=== PATIENT | female | born 1980 | race Caucasian/White ===

== ENCOUNTER 2016-11-20 12:24 | Emergency (ER) | payer OTHER ==
[2016-11-20] MEDS ORDERED: NS 0.9% 1000 ML* 1,000 ML IV SCH (12:45)
[2016-11-20 12:55] LABS: Hematocrit 44 % (35-47); Mean Corpuscular HGB Conc 34 g/dl (31-36); Mean Corpuscular Hemoglobin 31 pg (27-31); Mean Corpuscular Volume 92 fL (80-97); Mean Platelet Volume 7 um3 (7.4-10.4); Red Blood Count 4.81 10^6/ul (4.0-5.4); Red Cell Distribution Width 12 % (10.5-15); White Blood Count 5.9 10^3/ul (3.5-10.8)
[2016-11-20 13:12] LABS: ALT 14 U/L (7-52); AST 16 U/L (13-39); Albumin 4.3 g/dL (3.2-5.2); Alkaline Phosphatase 51 U/L (34-104); Anion Gap 6 mmol/L (2-11); BUN/Creatinine Ratio 14.9 (8-20); Blood Urea Nitrogen 10 mg/dL (6-24); C Reactive Protein < 1.00 mg/L (< 5.00); CO2 Carbon Dioxide 25 mmol/L (22-32); Calcium 9.2 mg/dL (8.6-10.3); Chloride 105 mmol/L (101-111); Creatine Kinase 60 U/L (10-223); EGFR African American 126.7 (>60); EGFR Non-African American 98.5 (>60); Globulin 2.8 g/dL (2-4); Glucose 83 mg/dL (70-100); Lipase 24 U/L (11.0-82.0); Magnesium 2.1 mg/dL (1.9-2.7); Potassium 3.8 mmol/L (3.5-5.0); Sodium 136 mmol/L (133-145); Total Protein 7.1 g/dL (6.4-8.9)
[2016-11-20 13:42] LABS: TSH (Thyroid Stimulating Horm) 1.28 mcIU/mL (0.34-5.60)
[2016-11-20] MEDS ORDERED: Pantoprazole IV* 40 MG IV ONE (14:04)
[2016-11-20] MEDS ORDERED: Sucralfate TAB* 1 GM PO ONE (14:04)
[2016-11-20] MEDS ORDERED: Lidocaine 2% VISCOUS* 15 ML UDC PO ONE (15:25)
[2016-11-20] MEDS ORDERED: Al Hydrox/Mg Hydrox/Simet LIQ* 30 ML UDC PO ONE (15:25)
[2016-11-20] MEDS ORDERED: Hydrocortisone INJ* 250 MG VIAL IV ONE (15:25)
[2016-11-20] MEDS ORDERED: Ibuprofen TAB* 600 MG PO ONE (15:34)
[2016-11-20 16:16] VITALS: BP 112/67
--- NOTE | 2016-11-21 19:47 | ED ---
Génesis Denson Alok, scribed for Piotr Coronel MD on 11/20/16 at 1433 . Allergic Reaction/Systemic - HPI Summary HPI Summary: 36F presents to the ED with tongue swelling and pain. Pt states that this morning after waking her tongue felt swollen and noticed teeth garcia on lips. Pt states later her tongue began to feel painful and notes sore throat and difficulty speaking. The pt states that last night she experienced epigastric pain 7/10 in severity after eating a cookie and still feels epigastric pain at 3 /10 in severity. Pt notes dysphagia. Pt states she has never experienced her tongue pain/swelling before, but since June 2016 as been experiencing GI issues improved since cutting out dairy, meat, and sugar from her diet. PMHx includes MS and secondary adrenal deficiency for which she has been taking 17.5 mg Cortef QD. She has taken her Cortef today and yesterday. Pt states NKDA. - History of Current Complaint Chief Complaint: EDAllergicReaction Time Seen by Provider: 11/20/16 13:58 Hx Obtained From: Patient Onset/Duration: Gradual Onset, Started hours ago, Still Present Timing: Constant Severity Initially: Moderate Severity Currently: Moderate Pain Intensity: 3 - epigastric pain Pain Scale Used: 0-10 Numeric Location: Discrete @ - epigastric Character: Swelling - tongue, Pain - tongue Aggravating Factor(s): Other - Sugar - Epigastric pain Associated Signs And Symptoms: Positive: Abdominal Pain, Throat Tightening, Other: - dysphagia, tongue pain/swelling - Allergies/Home Medications Allergies/Adverse Reactions: Allergies Allergy/AdvReac Type Severity Reaction Status Date / Time No Known Allergies Allergy Verified 10/08/16 13:18 PMH/Surg Hx/FS Hx/Imm Hx Endocrine/Hematology History: Denies: Hx Diabetes Cardiovascular History: Denies: Hx Congestive Heart Failure, Hx Hypertension, Hx Pacemaker/ICD History: Denies: Hx Dialysis, Hx Renal Disease Sensory History: Denies: Hx Hearing Aid Psychiatric History: Denies: Hx Panic Disorder - Surgical History Surgery Procedure, Year, and Place: TUBAL LIGATION - Immunization History Date of Tetanus Vaccine: Unk Date of Influenza Vaccine: Fall 2012 Infectious Disease History: No Infectious Disease History: Denies: Traveled Outside the [place] in Last 30 Days - Family History Known Family History: Negative: Cardiac Disease, Hypertension, Diabetes - Social History Occupation: Retired Alcohol Use: None Substance Use Type: Reports: None Smoking Status (MU): Former Smoker Review of Systems Negative: Fever Positive: Sore Throat, Other - Tongue pain/swelling, dysphagia Positive: Abdominal Pain All Other Systems Reviewed And Are Negative: Yes Physical Exam Triage Information Reviewed: Yes Vital Signs On Initial Exam: Initial Vitals Temp Pulse Resp BP Pulse Ox 98.3 F 79 13 135/73 100 11/20/16 12:26 11/20/16 12:26 11/20/16 12:26 11/20/16 12:26 11/20/16 12:26 Vital Signs Reviewed: Yes Appearance: Positive: Well-Appearing, No Pain Distress Skin: Positive: Warm, Skin Color Reflects Adequate Perfusion, Dry Head/Face: Positive: Normal Head/Face Inspection Eyes: Positive: Normal ENT: Positive: Normal ENT inspection Neck: Positive: Supple, Nontender, No Lymphadenopathy Respiratory/Lung Sounds: Positive: Clear to Auscultation, Breath Sounds Present Cardiovascular: Positive: RRR Abdomen Description: Positive: Soft, Other: - Epigastric Pain Bowel Sounds: Positive: Present Musculoskeletal: Positive: Normal Neurological: Positive: Normal Psychiatric: Positive: Normal, Affect/Mood Appropriate - [place] Coma Scale Coma Scale Total: 15 Diagnostics - Vital Signs Vital Signs Temp Pulse Resp BP Pulse Ox 11/20/16 13:46 77 109/60 96 11/20/16 13:30 77 104/66 95 11/20/16 13:00 77 101/66 96 11/20/16 12:43 79 100 11/20/16 12:41 111/85 11/20/16 12:30 98.9 F 81 16 104/66 96 11/20/16 12:26 98.3 F 79 13 135/73 100 - Laboratory Lab Results: Lab Results 11/20/16 11/20/16 11/20/16 Range/Units 12:45 12:45 12:45 WBC 5.9 (3.5-10.8) 10^3/ul RBC 4.81 (4.0-5.4) 10^6/ul Hgb 15.0 (12.0-16.0) g/dl Hct 44 (35-47) % MCV 92 (80-97) fL MCH 31 (27-31) pg MCHC 34 (31-36) g/dl RDW 12 (10.5-15) % Plt Count 289 (150-450) 10^3/ul MPV 7 L (7.4-10.4) um3 Neut % (Auto) 49.5 (38-83) % Lymph % (Auto) 34.6 (25-47) % Mills % (Auto) 9.0 (1-9) % Eos % (Auto) 6.5 H (0-6) % Baso % (Auto) 0.4 (0-2) % Absolute Neuts (auto) 2.9 (1.5-7.7) 10^3/ul Absolute Lymphs (auto) 2.0 (1.0-4.8) 10^3/ul Absolute Monos (auto) 0.5 (0-0.8) 10^3/ul Absolute Eos (auto) 0.4 (0-0.6) 10^3/ul Absolute Basos (auto) 0 (0-0.2) 10^3/ul Absolute Nucleated RBC 0 10^3/ul Nucleated RBC % 0 INR (Anticoag Therapy) 0.92 (0.89-1.11) APTT 30.2 (26.0-36.3) seconds Sodium 136 (133-145) mmol/L Potassium 3.8 (3.5-5.0) mmol/L Chloride 105 (101-111) mmol/L Carbon Dioxide 25 (22-32) mmol/L Anion Gap 6 (2-11) mmol/L BUN 10 (6-24) mg/dL Creatinine 0.67 (0.51-0.95) mg/dL Est GFR ( Amer) 126.7 (>60) Est GFR (Non-Af Amer) 98.5 (>60) BUN/Creatinine Ratio 14.9 (8-20) Glucose 83 (70-100) mg/dL Lactic Acid (0.5-2.0) mmol/L Calcium 9.2 (8.6-10.3) mg/dL Magnesium 2.1 (1.9-2.7) mg/dL Total Bilirubin 0.40 (0.2-1.0) mg/dL AST 16 (13-39) U/L ALT 14 (7-52) U/L Alkaline Phosphatase 51 (34-104) U/L Total Creatine Kinase 60 (10-223) U/L CK-MB (CK-2) 1.6 (0.6-6.3) ng/mL Troponin I 0.00 (<0.04) ng/mL C-Reactive Protein < 1.00 (< 5.00) mg/L B-Natriuretic Peptide ( - 100) pg/mL Total Protein 7.1 (6.4-8.9) g/dL Albumin 4.3 (3.2-5.2) g/dL Globulin 2.8 (2-4) g/dL Albumin/Globulin Ratio 1.5 (1-3) Lipase 24 (11.0-82.0) U/L TSH 1.28 (0.34-5.60) mcIU/mL Beta HCG, Quant < 0.60 mIU/mL 11/20/16 11/20/16 Range/Units 12:45 12:45 WBC (3.5-10.8) 10^3/ul RBC (4.0-5.4) 10^6/ul Hgb (12.0-16.0) g/dl Hct (35-47) % MCV (80-97) fL MCH (27-31) pg MCHC (31-36) g/dl RDW (10.5-15) % Plt Count (150-450) 10^3/ul MPV (7.4-10.4) um3 Neut % (Auto) (38-83) % Lymph % (Auto) (25-47) % Mills % (Auto) (1-9) % Eos % (Auto) (0-6) % Baso % (Auto) (0-2) % Absolute Neuts (auto) (1.5-7.7) 10^3/ul Absolute Lymphs (auto) (1.0-4.8) 10^3/ul Absolute Monos (auto) (0-0.8) 10^3/ul Absolute Eos (auto) (0-0.6) 10^3/ul Absolute Basos (auto) (0-0.2) 10^3/ul Absolute Nucleated RBC 10^3/ul Nucleated RBC % INR (Anticoag Therapy) (0.89-1.11) APTT (26.0-36.3) seconds Sodium (133-145) mmol/L Potassium (3.5-5.0) mmol/L Chloride (101-111) mmol/L Carbon Dioxide (22-32) mmol/L Anion Gap (2-11) mmol/L BUN (6-24) mg/dL Creatinine (0.51-0.95) mg/dL Est GFR ( Amer) (>60) Est GFR (Non-Af Amer) (>60) BUN/Creatinine Ratio (8-20) Glucose (70-100) mg/dL Lactic Acid 0.9 (0.5-2.0) mmol/L Calcium (8.6-10.3) mg/dL Magnesium (1.9-2.7) mg/dL Total Bilirubin (0.2-1.0) mg/dL AST (13-39) U/L ALT (7-52) U/L Alkaline Phosphatase (34-104) U/L Total Creatine Kinase (10-223) U/L CK-MB (CK-2) (0.6-6.3) ng/mL Troponin I (<0.04) ng/mL C-Reactive Protein (< 5.00) mg/L B-Natriuretic Peptide 13 ( - 100) pg/mL Total Protein (6.4-8.9) g/dL Albumin (3.2-5.2) g/dL Globulin (2-4) g/dL Albumin/Globulin Ratio (1-3) Lipase (11.0-82.0) U/L TSH (0.34-5.60) mcIU/mL Beta HCG, Quant mIU/mL Result Diagrams: 11/20/16 12:45 11/20/16 12:45 Lab Statement: Any lab studies that have been ordered have been reviewed, and results considered in the medical decision making process. Allergic Reaction Course/Dx - Course Course Of Treatment: Ms. Denson preented C/O pain in her tongue this AM and epigastric pain during the night. She improved slowly with GI meds here in the ED and I think this was probably reflux. - Diagnoses Provider Diagnoses: GERD (gastroesophageal reflux disease) Discharge - Discharge Plan Condition: Stable Disposition: HOME Patient Education Materials: Gastroesophageal Reflux Disease (ED) Referrals: Irwin Mcfadden III, SHRINK PIT OPERATOR [Primary Care Provider] - The documentation as recorded by the Génesis lyn Alok accurately reflects the service I personally performed and the decisions made by me, Piotr Coronel MD.
== END 2016-11-20 16:56 | disposition home or self-care (01) ==
LOC: ED 12:24
DX: K21.9 Gastro-esophageal reflux disease without esophagitis (principal); R10.9 Unspecified abdominal pain; R13.10 Dysphagia, unspecified; J02.9 Acute pharyngitis, unspecified; Z87.891 Personal history of nicotine dependence
CPT/HCPCS: 36415; 80053; 82550; 82553; 83605; 83690; 83735; 83880; 84443; 84484; 84702; 85025; 85610; 85730; 86140; 96374; 96375; 99284; A9270-GY; J1720

== ENCOUNTER 2017-07-02 21:40 | Emergency (ER) | payer OTHER ==
[2017-07-02] MEDS ORDERED: Acyclovir* 200 MG CAP PO ONE (21:51)
[2017-07-02 22:02] VITALS: BP 113/70
[2017-07-02] MEDS ORDERED: Acyclovir* 200 MG CAP ONE (22:08)
--- NOTE | 2017-07-02 22:15 | UC ---
Matilda Denson Alfonso, scribed for Jayant Purdy MD on 07/02/17 at 2153 . General HPI - HPI Summary HPI Summary: This patient is a 37 year old F presenting to [facility] accompanied by male with a chief complaint of a painful left hip rash noted earlier today. She reports this rash was similar to a previous MRSA. The patient rates the pain 3/10 in severity. Symptoms aggravated and alleviated by nothing. Patient reports low back pain. - History of Current Complaint Stated Complaint: RASH Time Seen by Provider: 07/02/17 21:46 Hx Obtained From: Patient Onset/Duration: Still Present, Other - noted earlier today Timing: Constant Current Severity: Mild - 3/10 Pain Intensity: 3 - /10 Pain Location at: left hip Pain Radiates to: low back Aggravating: nothing Alleviating: nothing - Allergy/Home Medications Allergies/Adverse Reactions: Allergies Allergy/AdvReac Type Severity Reaction Status Date / Time No Known Allergies Allergy Verified 07/02/17 21:52 Home Medications: Home Medications Carbamazepine [Carbamazepine ER] 400 mg PO BEDTIME 07/02/17 [History Confirmed 07/02/17] PMH/Surg Hx/FS Hx/Imm Hx Previously Healthy: No Endocrine History: Other - MS. Adrenal insufficency. Other Endocrine History: MS. Adrenal insufficency. - Surgical History Surgical History: Yes Surgery Procedure, Year, and Place: TUBAL LIGATION - Family History Known Family History: Negative: Cardiac Disease, Hypertension, Diabetes - Social History Alcohol Use: None Substance Use Type: None Smoking Status (MU): Former Smoker Review of Systems Skin: Rash Musculoskeletal: Other: - low back pain All Other Systems Reviewed And Are Negative: Yes Physical Exam Triage Information Reviewed: Yes Vital Signs Reviewed: Yes - Additional Comments VITAL SIGNS: Reviewed. GENERAL: Patient is a well-developed and nourished female who is lying comfortable in the stretcher. Patient is not in any acute respiratory distress. HEAD AND FACE: Normocephalic EYES: PERRLA, EOMI x 2. EARS: Hearing grossly intact. MOUTH: Oropharynx within normal limits. NECK: Supple, trachea is midline, no adenopathy, no JVD, no carotid bruit. CHEST: Symmetric, no tenderness at palpation LUNGS: Clear to auscultation bilaterally. No wheezing or crackles. CVS: Regular rate and rhythm, S1 and S2 present, no murmurs or gallops appreciated. ABDOMEN: Soft, non-tender. Bowel sounds are normal. No abdominal abnormal pulsations. EXTREMITIES: Full ROM in all major joints, no edema, no cyanosis or clubbing. NEURO: Alert and oriented x 3. No acute neurological deficits. Speech is normal and follows commands. SKIN: Dry and warm. Vesicular rash with surrounding erythema which is tender to the touch at the left hip. Course/Dx - Course Course Of Treatment: This patient is a 37 year old F presenting to [facility] accompanied by male with a chief complaint of a painful left hip rash noted earlier today. She reports this rash was similar to a previous MRSA. The patient rates the pain 3/10 in severity. Symptoms aggravated and alleviated by nothing. Patient reports low back pain. Patient will be discharged with prescription for Valtrex and follow up from PCP. The patient is agreeable with this plan. The patient is hemodynamically stable, alert and oriented x3. - Differential Dx - Multi-Symptom Differential Diagnoses: Other - Contact dermatitis, tinea, cellulitis Provider Diagnoses: Shingles Discharge - Discharge Plan Condition: Stable Disposition: HOME Prescriptions: ValACYclovir (*) [Valtrex 1 GM(*)] 1 gm PO TID #21 tab Patient Education Materials: Shingles (ED) Referrals: Irwin Mcfadden III, ELECTRONICS ENGINEERING PROFESSOR [Primary Care Provider] - 3 Days Additional Instructions: RETURN TO THE EMERGENCY DEPARTMENT OR CONVENIENT CARE FOR CHANGING OR WORSENING SYMPTOMS. The documentation as recorded by the Matilda lyn Alfonso accurately reflects the service I personally performed and the decisions made by , Jayant Purdy MD.
== END 2017-07-02 22:18 | disposition home or self-care (01) ==
LOC: UCEAST 21:40
DX: B02.9 Zoster without complications (principal); M54.5 Low back pain; Z87.891 Personal history of nicotine dependence; Z86.14 Personal history of Methicillin resistant Staphylococcus aureus infection
CPT/HCPCS: 99212; A9270-GY; G0463

== ENCOUNTER 2017-07-07 18:58 | Emergency (ER) | payer OTHER ==
--- NOTE | 2017-07-07 19:03 | UC ---
Skin Complaint HPI - HPI Summary HPI Summary: 37 year old female presents with complains of continued left abdominal shingle pain. - History of Current Complaint Chief Complaint: UCSkin Time Seen by Provider: 07/07/17 19:02 Stated Complaint: SKIN PAIN Hx Obtained From: Patient Hx Last Menstrual Period: 06/16/17 Onset/Duration: Sudden Onset, Lasting Days Timing: Constant Onset Severity: Severe Current Severity: Severe - Allergy/Home Medications Allergies/Adverse Reactions: Allergies Allergy/AdvReac Type Severity Reaction Status Date / Time No Known Allergies Allergy Verified 07/02/17 21:52 Home Medications: Home Medications Gabapentin CAP(*) [Neurontin 100 mg CAP(*)] 400 mg PO DAILY 07/07/17 [History Confirmed 07/07/17] Review of Systems Constitutional: Negative Skin: Rash Eyes: Negative ENT: Negative Respiratory: Negative Cardiovascular: Negative Gastrointestinal: Negative Genitourinary: Negative Motor: Negative Neurovascular: Negative Musculoskeletal: Negative Neurological: Negative Psychological: Negative All Other Systems Reviewed And Are Negative: Yes PMH/Surg Hx/FS Hx/Imm Hx Previously Healthy: Yes - Surgical History Surgical History: Yes Surgery Procedure, Year, and Place: TUBAL LIGATION - Family History Known Family History: Negative: Cardiac Disease, Hypertension, Diabetes - Social History Alcohol Use: None Substance Use Type: None Smoking Status (MU): Former Smoker Physical Exam Triage Information Reviewed: Yes Vital Signs Reviewed: Yes Eye Exam: Normal ENT Exam: Normal Dental Exam: Normal Neck exam: Normal Neck: Positive: 1 Respiratory Exam: Normal Cardiovascular Exam: Normal Abdominal Exam: Normal Musculoskeletal Exam: Normal Neurological Exam: Normal Psychological Exam: Normal Skin: Positive: rashes Course/Dx - Diagnoses Provider Diagnoses: shingles Discharge - Discharge Plan Condition: Stable Disposition: HOME Prescriptions: Acetaminop/Codeine 30 MG TAB* [Tylenol/Codeine 30 MG TAB*] 1 tab PO Q8H PRN #9 tab MDD 3 PRN Reason: Pain Capsaicin 0.025% CREAM* [Zostrix 0.025% CREAM*] 1 applic TOPICAL BID #1 tube Patient Education Materials: Shingles (ED) Referrals: Irwin Mcfadden III, NP [Primary Care Provider] -
[2017-07-07 19:07] VITALS: BP 116/75
[2017-07-07] MEDS ORDERED: Acetaminop/Codeine 30 MG TAB* 1 TAB (300 MG/30 MG) PO ONE (19:16)
== END 2017-07-07 19:33 | disposition home or self-care (01) ==
LOC: UCEAST 18:58
DX: B02.9 Zoster without complications (principal); Z87.891 Personal history of nicotine dependence
CPT/HCPCS: 99212; A9270-GY; G0463

== ENCOUNTER 2017-07-08 05:31 | Emergency (ER) | payer OTHER ==
[2017-07-08 05:39] VITALS: BP 113/68
[2017-07-08] MEDS ORDERED: oxyCODONE/Acetamin 5/325 MG* TAB PO ONE (05:51)
[2017-07-08] MEDS ORDERED: Ketorolac INJ* 60 MG/2 ML VIAL IM ONE (05:51)
--- NOTE | 2017-07-08 06:31 | ED ---
Rodrick Denson Tecjoon, scribed for Caroline Mills MD on 07/08/17 at 0556 . Abdominal Pain/Female - HPI Summary HPI Summary: This patient is a 37 year old female presenting to [facility] accompanied by male reimbursement rep with a chief complaint of left sided ribcage pain since 0300 this morning. The pain is rated 8/10 in severity. Symptoms aggravated by palpation. Symptoms alleviated by nothing. Patient visited last evening and was prescribed Tylenol #3, but states that the pain only worsened further. Patient states that she was dx with shingles on 07/03/17. Pt also reported hx of MS, wondering if in flare d/t left sided "numbness". Patient additionally reports a rash on her left lower abdomen, due to shingles. - History of Current Complaint Chief Complaint: EDRashSkinAbscess Stated Complaint: LT SIDE PAIN/RASH Time Seen by Provider: 07/08/17 05:42 Hx Obtained From: Patient Hx Last Menstrual Period: 06/16/17 Onset/Duration: Gradual Onset, Lasting Hours Timing: Constant Severity Currently: Severe Pain Intensity: 8 Pain Scale Used: 0-10 Numeric Location: Other - left ribcage Aggravating Factor(s): Other: - palpation Alleviating Factor(s): Nothing Associated Signs and Symptoms: Positive: Other: - rash on left lower abdomen due to shingles. Allergies/Adverse Reactions: Allergies Allergy/AdvReac Type Severity Reaction Status Date / Time No Known Allergies Allergy Verified 07/08/17 05:39 PMH/Surg Hx/FS Hx/Imm Hx Previously Healthy: No Endocrine/Hematology History: Denies: Hx Diabetes Cardiovascular History: Denies: Hx Congestive Heart Failure, Hx Hypertension, Hx Pacemaker/ICD History: Denies: Hx Dialysis, Hx Renal Disease Musculoskeletal History: Reports: Other Musculoskeletal History - MS Sensory History: Denies: Hx Hearing Aid Neurological History: Reports: Other Neuro Impairments/Disorders - Multiple Sclerosis Psychiatric History: Denies: Hx Panic Disorder - Surgical History Surgery Procedure, Year, and Place: TUBAL LIGATION - Immunization History Date of Tetanus Vaccine: Unk Date of Influenza Vaccine: Fall 2012 Infectious Disease History: Yes Infectious Disease History: Reports: Hx of Known/Suspected MRSA, Hx Shingles Denies: Traveled Outside the [place] in Last 30 Days - Family History Known Family History: Negative: Cardiac Disease, Hypertension, Diabetes - Social History Alcohol Use: None Hx Substance Use: No Substance Use Type: Reports: None Hx Tobacco Use: No Smoking Status (MU): Former Smoker Review of Systems Negative: Fever Positive: Abdominal Pain - left lower abdomen Positive: Rash - shingles rash on left lower abdomen All Other Systems Reviewed And Are Negative: Yes Physical Exam - Summary Physical Exam Summary: VITAL SIGNS: Reviewed. GENERAL: Patient is a well-developed and nourished female who is lying comfortable in the stretcher. Patient is not in any acute respiratory distress. HEAD AND FACE: No signs of trauma. No ecchymosis, hematomas or skull depressions. No sinus tenderness. EYES: PERRLA, EOMI x 2, No injected conjunctiva, no nystagmus. EARS: Hearing grossly intact. Ear canals and tympanic membranes are within normal limits. MOUTH: Oropharynx within normal limits. NECK: Supple, trachea is midline, no adenopathy, no JVD, no carotid bruit, no c- spine tenderness, neck with full ROM. CHEST: Symmetric, no tenderness at palpation LUNGS: Clear to auscultation bilaterally. No wheezing or crackles. CVS: Regular rate and rhythm, S1 and S2 present, no murmurs or gallops appreciated. ABDOMEN: Soft, non-tender. No signs of distention. No rebound no guarding, and no masses palpated. Bowel sounds are normal. EXTREMITIES: FROM in all major joints, no edema, no cyanosis or clubbing. NEURO: Alert and oriented x 3. No acute neurological deficits. Speech is normal and follows commands. SKIN: Dry and warm. Localized vesicular rash over left lower abdomen Triage Information Reviewed: Yes Vital Signs On Initial Exam: Initial Vitals Temp Pulse Resp BP Pulse Ox 97.9 F 96 16 113/68 99 07/08/17 05:31 07/08/17 05:31 07/08/17 05:31 07/08/17 05:31 07/08/17 05:31 Vital Signs Reviewed: Yes Diagnostics - Vital Signs Vital Signs Temp Pulse Resp BP Pulse Ox 07/08/17 05:31 97.9 F 96 16 113/68 99 - Laboratory Lab Statement: Any lab studies that have been ordered have been reviewed, and results considered in the medical decision making process. Abdominal Pain Fem Course/Dx - Course Course Of Treatment: This patient is a 37 year old female presenting to [facility] accompanied by male reimbursement rep with a chief complaint of left sided ribcage pain since 0300 this morning. The pain is rated 8/10 in severity. Patient additionally reports a rash on her left lower abdomen, due to shingles. In the ED course the patient was given Oxycodone, Toradol. Patient will be discharged with Shingles and follow up with PCP in 3 days. The patient is agreeable with this plan. - Diagnoses Provider Diagnoses: Shingles Discharge - Discharge Plan Condition: Fair Disposition: HOME Prescriptions: oxyCODONE/Acetamin 5/325 MG* [Percocet 5/325 TAB*] 1 tab PO Q6H PRN #14 tab MDD 4 PRN Reason: Pain - Moderate To Severe Patient Education Materials: Attila (ED) Referrals: Irwin Mcfadden III, FONDANT PUFF MAKER [Primary Care Provider] - 3 Days Additional Instructions: RETURN TO EMERGENCY DEPARTMENT FOR ANY NEW OR WORSENING SYMPTOMS The documentation as recorded by the Rodrick lyn Tecjoon accurately reflects the service I personally performed and the decisions made by , Caroline Mills MD.
== END 2017-07-08 06:33 | disposition home or self-care (01) ==
LOC: ED 05:31
DX: R21 Rash and other nonspecific skin eruption (principal); Z87.891 Personal history of nicotine dependence; R10.32 Left lower quadrant pain; B02.9 Zoster without complications
CPT/HCPCS: 96372; 99282; A9270-GY; J1885

== ENCOUNTER 2017-07-23 15:25 | Emergency (ER) | payer OTHER ==
[2017-07-23] MEDS ORDERED: HYDROcodone/ACETAMIN 5-325 MG* 1 TAB PO ONE (20:00)
[2017-07-23 21:21] LABS: ABS Basophils 0 10^3/ul (0-0.2); ABS Eosinophils 0.2 10^3/ul (0-0.6); ABS Lymphocytes 1.7 10^3/ul (1.0-4.8); ABS Monocytes 0.6 10^3/ul (0-0.8); ABS Nucleated RBC 0 10^3/ul; Eosinophil % 3.3 % (0-6); Hematocrit 41 % (35-47); Hemoglobin 14.3 g/dl (12.0-16.0); Lymphocyte % 25.6 % (25-47); Mean Corpuscular HGB Conc 35 g/dl (31-36); Mean Corpuscular Hemoglobin 32 pg (27-31); Mean Corpuscular Volume 93 fL (80-97); Mean Platelet Volume 7 um3 (7.4-10.4); Nucleated Red Blood Cells % 0; Platelet Count 325 10^3/ul (150-450); Red Blood Count 4.46 10^6/ul (4.0-5.4); Red Cell Distribution Width 12 % (10.5-15); White Blood Count 6.5 10^3/ul (3.5-10.8)
[2017-07-23 21:34] LABS: Urine Appearance Cloudy; Urine Blood Negative (Negative); Urine Color Yellow; Urine Ketones Negative (Negative); Urine Protein Negative (Negative); Urine Specific Gravity 1.012 (1.010-1.030); Urine Urobilinogen Negative (Negative)
[2017-07-23] MEDS ORDERED: Ketorolac INJ* 60 MG/2 ML VIAL IM ONE (21:50)
[2017-07-23] MEDS ORDERED: methylPREDNISolone 125 MG* 2 ML VIAL IV ONE (21:51)
[2017-07-23] MEDS ORDERED: Morphine INJ* 4 MG/ML 1 ML CARPUJECT IV ONE (21:52)
--- NOTE | 2017-07-23 22:27 | ED ---
Complex/Multi-Sys Presentation - HPI Summary HPI Summary: Patient presents to the ED with . She states she has MS and is having diffuse pain to the bilateral arms and legs, noting worsening pain along her spine which feels like a burning or like a knife. She takes Copaxone 3x weekly (injection). She was dx 2 years ago and has never had a relapse. She notes this is the worse pain she has had related to her MS. 3 weeks ago she was dx with a shingles infection and subsequently treated with valacyclovir x 1 week. She notes the rash has dissipated along with the "skin pain" around the vesicles. However, 4 days after completing her antiviral she began to have tingling into the bilateral arms. She has had this before, but has always been unilateral (occurring only on the L side). She also is having pain in her back and down her legs described as pins and needles. She has been seen twice for pain (one in the ED and one in the UC.) She was given percoset on ED visit and tylenol with codeine during visit at UC. She has been taking with mild relief. Last dose was at 10am. She also has a history of adrenal insufficiency and takes Cortef 17.5mg once daily. Other medications include carbamazepine, Valium at bedtime and amantadine. Endorses weakness and more difficulty walking. Neurologist is Dr. West. Denies fevers, sweats, chills, chest pain , SOB, TOVAR. No history of optic neuritis. - History Of Current Complaint Chief Complaint: EDBackInjuryPain Time Seen by Provider: 07/23/17 18:58 Hx Obtained From: Patient Onset/Duration: Gradual Onset Timing: Constant Severity Currently: Severe Severity Initially: Severe Location: Pain At: - bilateral arms and legs Associated Signs And Symptoms: Positive: Immunocompromised - Allergies/Home Medications Allergies/Adverse Reactions: Allergies Allergy/AdvReac Type Severity Reaction Status Date / Time No Known Allergies Allergy Verified 07/23/17 15:29 PMH/Surg Hx/FS Hx/Imm Hx Previously Healthy: Yes Endocrine/Hematology History: Denies: Hx Diabetes Cardiovascular History: Denies: Hx Congestive Heart Failure, Hx Hypertension, Hx Pacemaker/ICD History: Denies: Hx Dialysis, Hx Renal Disease Musculoskeletal History: Reports: Other Musculoskeletal History - MS Sensory History: Denies: Hx Hearing Aid Neurological History: Reports: Other Neuro Impairments/Disorders - Multiple Sclerosis Psychiatric History: Denies: Hx Panic Disorder - Surgical History Surgery Procedure, Year, and Place: TUBAL LIGATION - Immunization History Date of Tetanus Vaccine: Unk Date of Influenza Vaccine: Fall 2012 Hx Pertussis Vaccination: No Immunizations Up to Date: Unable to Obtain/Confirm Infectious Disease History: No Infectious Disease History: Reports: Hx of Known/Suspected MRSA, Hx Shingles Denies: Traveled Outside the [place] in Last 30 Days - Family History Known Family History: Negative: Cardiac Disease, Hypertension, Diabetes - Social History Occupation: Unemployed Lives: With Family Alcohol Use: None Hx Substance Use: No Substance Use Type: Reports: None, Prescribed Substance Use Comment - Amount & Last Used: medical marijuana d/t MS Hx Tobacco Use: No Smoking Status (MU): Former Smoker Review of Systems Constitutional: Negative Negative: Fever, Chills, Fatigue, Skin Diaphoresis Eyes: Negative Cardiovascular: Negative Respiratory: Negative Negative: Abdominal Pain, Vomiting, Diarrhea, Nausea Positive: no symptoms reported, see HPI Positive: Rash - left sided rash old vesicles from singles Positive: Paresthesia Psychological: Normal All Other Systems Reviewed And Are Negative: Yes Physical Exam Triage Information Reviewed: Yes Vital Signs On Initial Exam: Initial Vitals Temp Pulse Resp BP Pulse Ox 97.8 F 91 20 139/82 99 07/23/17 15:29 07/23/17 15:29 07/23/17 15:29 07/23/17 15:29 07/23/17 15:29 Vital Signs Reviewed: Yes Appearance: Positive: Well-Appearing, Well-Nourished Skin: Positive: Skin Color Reflects Adequate Perfusion Head/Face: Positive: Normal Head/Face Inspection Eyes: Positive: EOMI, SHARYN, Conjunctiva Clear Respiratory/Lung Sounds: Positive: Clear to Auscultation, Breath Sounds Present Cardiovascular: Positive: Normal. Negative: Leg Edema Left, Leg Edema Right Musculoskeletal: Positive: Normal, Strength/ROM Intact Neurological: Positive: Alert, Oriented to Person Place, Time, Abnormal Gait, Speech Normal, Other - no weakness noted in bilateral legs Psychiatric: Positive: Affect/Mood Appropriate AVPU Assessment: Alert Diagnostics - Vital Signs Vital Signs Temp Pulse Resp BP Pulse Ox 07/23/17 17:25 98.4 F 89 16 119/84 99 07/23/17 15:29 97.8 F 91 20 139/82 99 - Laboratory Lab Results: Lab Results 07/23/17 07/23/17 07/23/17 Range/Units 21:10 21:10 21:20 WBC 6.5 (3.5-10.8) 10^3/ul RBC 4.46 (4.0-5.4) 10^6/ul Hgb 14.3 (12.0-16.0) g/dl Hct 41 (35-47) % MCV 93 (80-97) fL MCH 32 H (27-31) pg MCHC 35 (31-36) g/dl RDW 12 (10.5-15) % Plt Count 325 (150-450) 10^3/ul MPV 7 L (7.4-10.4) um3 Neut % (Auto) 61.3 (38-83) % Lymph % (Auto) 25.6 (25-47) % [place] % (Auto) 9.1 H (1-9) % Eos % (Auto) 3.3 (0-6) % Baso % (Auto) 0.7 (0-2) % Absolute Neuts (auto) 4.0 (1.5-7.7) 10^3/ul Absolute Lymphs (auto) 1.7 (1.0-4.8) 10^3/ul Absolute Monos (auto) 0.6 (0-0.8) 10^3/ul Absolute Eos (auto) 0.2 (0-0.6) 10^3/ul Absolute Basos (auto) 0 (0-0.2) 10^3/ul Absolute Nucleated RBC 0 10^3/ul Nucleated RBC % 0 Sodium 138 (133-145) mmol/L Potassium 3.3 L (3.5-5.0) mmol/L Chloride 103 (101-111) mmol/L Carbon Dioxide 29 (22-32) mmol/L Anion Gap 6 (2-11) mmol/L BUN 8 (6-24) mg/dL Creatinine 0.67 (0.51-0.95) mg/dL Est GFR ( Amer) 126.0 (>60) Est GFR (Non-Af Amer) 98.0 (>60) BUN/Creatinine Ratio 11.9 (8-20) Glucose 105 H (70-100) mg/dL Calcium 9.4 (8.6-10.3) mg/dL Total Bilirubin 0.30 (0.2-1.0) mg/dL AST 15 (13-39) U/L ALT 14 (7-52) U/L Alkaline Phosphatase 56 (34-104) U/L Total Protein 7.3 (6.4-8.9) g/dL Albumin 4.6 (3.2-5.2) g/dL Globulin 2.7 (2-4) g/dL Albumin/Globulin Ratio 1.7 (1-3) Urine Color Yellow Urine Appearance Cloudy Urine pH 8.0 (5-9) Ur Specific [place] 1.012 (1.010-1.030) Urine Protein Negative (Negative) Urine Ketones Negative (Negative) Urine Blood Negative (Negative) Urine Nitrate Negative (Negative) Urine Bilirubin Negative (Negative) Urine Urobilinogen Negative (Negative) Ur Leukocyte Esterase Negative (Negative) Urine Glucose Negative (Negative) Result Diagrams: 07/23/17 21:10 07/23/17 21:10 Lab Statement: Any lab studies that have been ordered have been reviewed, and results considered in the medical decision making process. Complex Multi-Symp Course/Dx Course Of Treatment: During the course of treatment, patient is given 2 NORCO for pain relief. Discussed case with Dr. Guerrero who suggests labs and UA to assure no infection causing a possible peusorelapse. Labs WNL and shows no evidence of hypokalemia or hyperglycemia. Recommends 1G solumedrol IV. She is experiencing pain again and 4mg IV morphine with relief. She is to call the neurologist tomorrow. Dr. Guerrero advised follow up in his office if she is unable to follow up soon. I have given her a referral. She is not given a full 3 days 1000mg IV solumedrol with a taper as a relapse would require. She is strongly encouraged to follow up in 1 day or have appt for early next week or return to the ED for worsening symptoms not well controlled with her at home pain medications. Treatment options explained to patient. Patient understands the plan, voices no concerns at this time and understands the return precatuions given to them if they develop any worsening or changing symptoms. They are OK for discharge at this time. VS stable on discharge. Primary care follow up as agreed on discharge. She is given lidocaine patch prescription and toradol per her request. She is encoruaged to take the toradol first and if symptoms do not improve, she may take the percoset. She voices understanding. - Diagnoses Provider Diagnoses: Multiple sclerosis exacerbation Discharge - Discharge Plan Condition: Stable Disposition: HOME Prescriptions: Ketorolac TAB * [Toradol TAB *] 10 mg PO Q6H #16 tab Lidocaine PATCH 5%* [Lidoderm 5% Patch*] 1 patch TRANSDERM DAILY #5 patch oxyCODONE/Acetamin 10/325(NF) [Percocet 10/325 (NF)] 1 tab PO Q6H #16 tab MDD pain Referrals: Timi Guerrero MD [Medical Doctor] - Irwin Mcfadden III, NP [Primary Care Provider] - Additional Instructions: Please follow up immediately with your neurologist. I have given you a referral for OUR neurologist as well Take your at home pain medications for pain not well controlled with ibuprofen If anything becomes worse or different, return to the ED immediately
[2017-07-23] MEDS ORDERED: methylPREDNISolone SOD SUCC* 1,000 MG in NS 0.9% 250 ML* 250 ML IVPB ONE (22:30)
[2017-07-24] MEDS ORDERED: Ketorolac INJ* 30 MG/ML 1 ML VIAL IV PUSH ONE (00:10)
[2017-07-24 01:08] VITALS: BP 111/69
== END 2017-07-24 01:06 | disposition home or self-care (01) ==
LOC: ED 15:25
DX: G35 Multiple sclerosis (principal); R21 Rash and other nonspecific skin eruption; Z87.891 Personal history of nicotine dependence; R20.2 Paresthesia of skin
CPT/HCPCS: 36415; 80053; 81003; 85025; 96372; 96374; 96375; 99282; J1885; J2270; J2930

== ENCOUNTER 2017-11-21 19:51 | Emergency (ER) | payer OTHER ==
--- OUTSIDE RECORDS SUMMARY | 2017-11-21 20:07 | XMS REPORT ---
:1980 External Reference #:[id number] Author Organization [facility] Address [address] [place] [address] Phone [phone] Care Team Providers Name Role Phone Irwin Mcfadden FNP-C Primary Care Physician Unavailable Payers Type Date Identification Numbers Payment Provider Subscriber Commercial Effective: Policy Number: Song WALTON Ralf Isaac 2014 [id number] Expires: 2015 Group Name: [place] [address] [address] PayID: [id number] CHRISTIANA Fernandez [id number] Medigap Part B Effective: Policy Number: Medicaid/Computer Rasheeda Isaac 2015 [id number] Science Expires: 2015 Group Name: 1 1 [address] PayID: [id number] [place] [address] Commercial Expires: 2015 Policy Number: Nils Isaac [id number] Medicaid PayID: [id number] [address] [place] [id number] Commercial Effective: Policy Number: Nils Isaac 2015 [id number] Medicaid Expires: 2016 PayID: [id number] [address] [place] [id number] Commercial Effective: Policy Number: Saúl Del Toro-Edison Isaac 2016 [id number] Expires: 2016 PayID: [id number] [place] [address] Commercial Effective: Policy Number: Nils Isaac 2016 [id number] Medicaid PayID: [id number] 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 Acetaminophen-Cod 08/11 Active Tablets 300-30mg 60tab 1 tab by B02.23 Irwin hedrick #3 s mouth Sturgis every 6 III, hours as [employer]PER[employer] needed for severe pain Methylprednisolon 07/28 Active Solution 125mg/ml 1unit Administer Walter e Sodium Rec s 8mL Chase, Succinate (1,000mg M.D. total) IV daily. Dilute in 250mL sodium chloride 0.9% once daily x 2 days. Infuse over 45 minutes. Tretinoin 05/02 Active Cream 0.025% 40gm apply a pea-sized Sturgis amount to III, face at [employer] bedtime Fluticasone 08/08 Active Suspension 50mcg/Act 1unit 1 J01.90 Freddie Propionate s intranasal Heetderks daily , Diazepam 07/03 Active Tablets 5mg 120ta 1 tab by G37.9 bs mouth Sturgis every 6-8 III, hours as [employer]PER[employer] needed for muscle spasm. Amantadine HCL Active Capsules 100mg Unknown /0000 Carbamazepine ER Active Caps ER 200mg Unknown /0000 12HR Copaxone Active Soln Unknown /0000 Prefill Syringe Duloxetine HCL Active Caps DR 60mg Unknown /0000 Part Hydrocortisone Active Tablets 5mg 10mg in Unknown /0000 the Am, 5mg at noon, 5mg at 1600 Dicyclomine HCL 06/13 Hx Tablets 20mg 30tab 1 tab by R14.0 s mouth 4 Lesa - times III, 08/11 daily for [employer] 7 days Ilotycin 01/08 Hx Ointment 5mg/GM 1unit apply a H00.014 Lina s thin layer Nehemiah, - to left [employer] 08/11 eye twice daily x 5 days Azithromycin 08/08 Hx Tablets 250mg 6tabs take 2 J01.90 tablets by Vera - joey navarro MD 08/11 time take one daily for 4 days Tizanidine HCL 05/08 Hx Tablets 4mg 30tab 1 to 1 2 s tabs by Sturgis - mouth III, 09/08 every 8 [employer] hours as needed for muscle spasm Hydrocortisone 05/04 Hx Tablets 10mg 45tab take 1 s & 2 Sturgis - tabs at III, 10/27 noon. 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 Metaxalone 04/24 Hx Tablets 800mg 90tab 1 tab by M24.812 s mouth Sturgis - three III, 05/08 times a [employer]ACE [employer] SUPERVISOR- day for muscle spasm Clonazepam Hx Tablets 0.5mg Unknown /0000 Dispers - 07/03 Gabapentin 00 Hx Capsules 300mg 1 tab by Unknown /0000 mouth once - a day. 08/11 Immunizations CPT Code Status Date Vaccine Lot # 60466 Given 06/17/2016 Influenza Virus Vaccine, Quadrivalent, 3 Yr > [id number] Quad, Preserv Free [id number] Given 04/24/2015 Influenza Virus Vaccine, Quadrivalent, 3 Yr > [id number] Quad, Preserv Free Vital Signs Date Vital Result Comment 10/27/2017 Weight 160.00 lb Weight in kg's 72.576 BP Systolic 108 mmHg BP Diastolic 60 mmHg Heart Rate 88 /min Body Temperature 97.4 F Respiratory Rate 16 /min O2 % BldC Oximetry 98 % 10/13/2017 Weight 160.00 lb Weight in kg's 72.576 BP Systolic 108 mmHg BP Diastolic 60 mmHg Heart Rate 82 /min Body Temperature 97.3 F Respiratory Rate 16 /min O2 % BldC Oximetry 98 % 09/29/2017 Weight 163.00 lb Weight in kg's 73.937 BP Systolic 108 mmHg BP Diastolic 62 mmHg Heart Rate 88 /min Body Temperature 98.4 F Respiratory Rate 16 /min 09/08/2017 Weight 159.00 lb Weight in kg's 72.122 BP Systolic 102 mmHg BP Diastolic 68 mmHg Heart Rate 84 /min Body Temperature 97.5 F Respiratory Rate 16 /min 08/25/2017 Weight 156.00 lb Weight in kg's 70.762 BP Systolic 100 mmHg BP Diastolic 62 mmHg Heart Rate 72 /min Body Temperature 97.6 F Respiratory Rate 16 /min 08/11/2017 Weight 152.00 lb Weight in kg's 68.947 BP Systolic 110 mmHg BP Diastolic 70 mmHg Heart Rate 72 /min Body Temperature 97.7 F Respiratory Rate 16 /min O2 % BldC Oximetry 98 % 01/27/2017 Weight 156.00 lb Weight in kg's 70.762 BP Systolic 102 mmHg BP Diastolic 70 mmHg Heart Rate 84 /min Body Temperature 98.5 F Respiratory Rate 16 /min Height 65.5 inches 5'5.50" BMI (Body Mass Index) 25.6 kg/m2 O2 % BldC Oximetry 98 % 09/30/2016 Weight 160.00 lb Weight in kg's 72.576 BP Systolic 100 mmHg BP Diastolic 68 mmHg Heart Rate 80 /min Body Temperature 98.0 F 09/10/2016 Weight 160.00 lb Weight in kg's 72.576 BP Systolic 90 mmHg BP Diastolic 60 mmHg Heart Rate 76 /min Body Temperature 98.2 F Respiratory Rate 12 /min 06/17/2016 Weight 159.00 lb Weight in kg's 72.122 BP Systolic 90 mmHg BP Diastolic 68 mmHg Heart Rate 68 /min Body Temperature 98.0 F Respiratory Rate 12 /min 06/13/2016 Weight 161.00 lb Weight in kg's 73.030 BP Systolic 105 mmHg BP Diastolic 65 mmHg Heart Rate 84 /min Body Temperature 98.6 F O2 % BldC Oximetry 98 % 01/22/2016 BP Systolic 90 mmHg BP Diastolic 60 mmHg Heart Rate 74 /min Body Temperature 98.1 F 01/11/2016 Weight 146.00 lb Weight in kg's 66.226 BP Systolic 90 mmHg BP Diastolic 60 mmHg Heart Rate 88 /min Body Temperature 97.8 F 01/09/2016 Weight 146.00 lb Weight in kg's 66.226 BP Systolic 100 mmHg BP Diastolic 70 mmHg Heart Rate 89 /min Body Temperature 97.9 F Motrin At 630Am Right Visual Acuity Distance 20/30 Left Visual Acuity Distance 20/30 Both Visual Acuity Distance 20/20 08/08/2015 Weight 146.00 lb Weight in kg's 66.226 BP Systolic 98 mmHg BP Diastolic 66 mmHg Heart Rate 84 /min Body Temperature 98.9 F 07/03/2015 Weight 146.00 lb Weight in kg's 66.226 BP Systolic 100 mmHg BP Diastolic 70 mmHg Heart Rate 88 /min Body Temperature 98.6 F 06/05/2015 Weight 145.00 lb Weight in kg's 65.772 BP Systolic 110 mmHg BP Diastolic 60 mmHg Heart Rate 64 /min Body Temperature 98.8 F Right Visual Acuity Distance 20/25 Left Visual Acuity Distance 20/30 Both Visual Acuity Distance 20/25 04/24/2015 Weight 151.00 lb Weight in kg's 68.494 BP Systolic 96 mmHg BP Diastolic 68 mmHg Heart Rate 76 /min Height 65.5 inches 5'5.50" BMI (Body Mass Index) 24.7 kg/m2 Last Menstrual Period [id number] Results Test Date Test Result H/L Range Note Urinalysis Profile 07/23/2017 Urine Color Yellow Urine Appearance Cloudy Urine Specific Lima 1.012 1.010-1.030 Urine pH 8.0 5-9 Urine Urobilinogen Negative Negative Urine Ketones Negative Negative Urine Protein Negative Negative Urine Leukocytes Negative Negative Urine Blood Negative Negative Urine Nitrite Negative Negative Urine Bilirubin Negative Negative Urine Glucose Negative Negative Comp Metabolic Panel 07/23/2017 Sodium 138 mmol/L 133-145 Potassium 3.3 mmol/L Low 3.5-5.0 Chloride 103 mmol/L 101-111 Co2 Carbon Dioxide 29 mmol/L 22-32 Anion Gap 6 mmol/L 2-11 Glucose 105 mg/dL High 70-100 Blood Urea Nitrogen 8 mg/dL 6-24 Creatinine 0.67 mg/dL 0.51-0.95 BUN/Creatinine Ratio 11.9 8-20 Calcium 9.4 mg/dL 8.6-10.3 Total Protein 7.3 g/dL 6.4-8.9 Albumin 4.6 g/dL 3.2-5.2 Globulin 2.7 g/dL 2-4 Albumin/Globulin Ratio 1.7 1-3 Total Bilirubin 0.30 mg/dL 0.2-1.0 Alkaline Phosphatase 56 U/L 34-104 Alt 14 U/L 7-52 Ast 15 U/L 13-39 Egfr Non- 98.0 >60 Egfr 126.0 >60 1 CBC Auto Diff 07/23/2017 White Blood Count 6.5 10^3/uL 3.5-10.8 Red Blood Count 4.46 10^6/uL 4.0-5.4 Hemoglobin 14.3 g/dL 12.0-16.0 Hematocrit 41 % 35-47 Mean Corpuscular Volume 93 fL 80-97 Mean Corpuscular Hemoglobin 32 pg High 27-31 Mean Corpuscular HGB Conc 35 g/dL 31-36 Red Cell Distribution Width 12 % 10.5-15 Platelet Count 325 10^3/uL 150-450 Mean Platelet Volume 7 um3 Low 7.4-10.4 Abs Neutrophils 4.0 10^3/uL 1.5-7.7 Abs Lymphocytes 1.7 10^3/uL 1.0-4.8 Abs Monocytes 0.6 10^3/uL 0-0.8 Abs Eosinophils 0.2 10^3/uL 0-0.6 Abs Basophils 0 10^3/uL 0-0.2 Abs Nucleated RBC 0 10^3/uL Granulocyte % 61.3 % 38-83 Lymphocyte % 25.6 % 25-47 Monocyte % 9.1 % High 1-9 Eosinophil % 3.3 % 0-6 Basophil % 0.7 % 0-2 Nucleated Red Blood Cells % 0 Laboratory test finding 11/20/2016 Inr 0.92 0.89-1.11 Partial Thrombo Time PTT 30.2 seconds 26.0-36.3 B-Type Natriuretic Peptide BNP 13 pg/mL 2 Lactic Acid 0.9 mmol/L 0.5-2.0 3 CBC Auto Diff 11/20/2016 White Blood Count 5.9 10^3/uL 3.5-10.8 Red Blood Count 4.81 10^6/uL 4.0-5.4 Hemoglobin 15.0 g/dL 12.0-16.0 Hematocrit 44 % 35-47 Mean Corpuscular Volume 92 fL 80-97 Mean Corpuscular Hemoglobin 31 pg 27-31 Mean Corpuscular HGB Conc 34 g/dL 31-36 Red Cell Distribution Width 12 % 10.5-15 Platelet Count 289 10^3/uL 150-450 Mean Platelet Volume 7 um3 Low 7.4-10.4 Abs Neutrophils 2.9 10^3/uL 1.5-7.7 Abs Lymphocytes 2.0 10^3/uL 1.0-4.8 Abs Monocytes 0.5 10^3/uL 0-0.8 Abs Eosinophils 0.4 10^3/uL 0-0.6 Abs Basophils 0 10^3/uL 0-0.2 Abs Nucleated RBC 0 10^3/uL Granulocyte % 49.5 % 38-83 Lymphocyte % 34.6 % 25-47 Monocyte % 9.0 % 1-9 Eosinophil % 6.5 % High 0-6 Basophil % 0.4 % 0-2 Nucleated Red Blood Cells % 0 Comp Metabolic Panel 11/20/2016 Sodium 136 mmol/L 133-145 Potassium 3.8 mmol/L 3.5-5.0 Chloride 105 mmol/L 101-111 Co2 Carbon Dioxide 25 mmol/L 22-32 Anion Gap 6 mmol/L 2-11 Glucose 83 mg/dL 70-100 Blood Urea Nitrogen 10 mg/dL 6-24 Creatinine 0.67 mg/dL 0.51-0.95 BUN/Creatinine Ratio 14.9 8-20 Calcium 9.2 mg/dL 8.6-10.3 Total Protein 7.1 g/dL 6.4-8.9 Albumin 4.3 g/dL 3.2-5.2 Globulin 2.8 g/dL 2-4 Albumin/Globulin Ratio 1.5 1-3 Total Bilirubin 0.40 mg/dL 0.2-1.0 Alkaline Phosphatase 51 U/L 34-104 Alt 14 U/L 7-52 Ast 16 U/L 13-39 Egfr Non- 98.5 >60 Egfr 126.7 >60 4 Laboratory test finding 11/20/2016 Magnesium 2.1 mg/dL 1.9-2.7 Lipase 24 U/L 11.0-82.0 Creatine Kinase 60 U/L 10-223 C Reactive Protein < 1.00 mg/L < 5.00 5 Troponin-I (TnI) 0.00 ng/mL <0.04 6 CKMB 11/20/2016 CKMB ng/mL 1.6 ng/mL 0.6-6.3 Laboratory test finding 11/20/2016 HCG < 0.60 mIU/mL 7 TSH (Thyroid Stimulating Horm) 1.28 mcIU/mL 0.34-5.60 CBC Auto Diff 06/17/2016 White Blood Count 4.8 10^3/uL 3.5-10.8 Red Blood Count 4.78 10^6/uL 4.0-5.4 Hemoglobin 15.0 g/dL 12.0-16.0 Hematocrit 45 % 35-47 Mean Corpuscular Volume 93 fL 80-97 Mean Corpuscular Hemoglobin 32 pg High 27-31 Mean Corpuscular HGB Conc 34 g/dL 31-36 Red Cell Distribution Width 13 % 10.5-15 Platelet Count 299 10^3/uL 150-450 Mean Platelet Volume 7 um3 Low 7.4-10.4 Abs Neutrophils 2.7 10^3/uL 1.5-7.7 Abs Lymphocytes 1.4 10^3/uL 1.0-4.8 Abs Monocytes 0.4 10^3/uL 0-0.8 Abs Eosinophils 0.3 10^3/uL 0-0.6 Abs Basophils 0.1 10^3/uL 0-0.2 Abs Nucleated RBC 0 10^3/uL Granulocyte % 56.9 % 38-83 Lymphocyte % 28.3 % 25-47 Monocyte % 7.4 % 1-9 Eosinophil % 5.8 % 0-6 Basophil % 1.6 % 0-2 Nucleated Red Blood Cells % 0.1 Basic Metabolic Panel 06/17/2016 Sodium 137 mmol/L 133-145 Potassium 4.4 mmol/L 3.5-5.0 Chloride 103 mmol/L 101-111 Co2 Carbon Dioxide 29 mmol/L 22-32 Anion Gap 5 mmol/L 2-11 Glucose 82 mg/dL 70-100 Blood Urea Nitrogen 16 mg/dL 6-24 Creatinine 0.66 mg/dL 0.51-0.95 BUN/Creatinine Ratio 24.2 High 8-20 Calcium 9.7 mg/dL 8.6-10.3 Egfr Non- 100.2 >60 Egfr 128.9 >60 8 Celiac Panel 06/17/2016 Tissue Transglutaminase IgA Ab <1.2 U/mL 9 Immunoglobulin A 284 mg/dL 61 - 356 Celiac Interpretation See Comment 10 Laboratory test 01/11/2016 Surgical Pathology SEE RESULT BELOW 11 finding Laboratory test 08/08/2015 Strep Screen Negative Neg finding Laboratory test 07/11/2015 Vitamin B12 796 pg/mL 180-914 12 finding Laboratory test 05/04/2015 Lola (Antinuclear Negative Negative finding Antibodies) Lyme Western Blot 05/04/2015 Lyme Disease IgG Ab Negative Negative WB Lyme Disease IgG Bands Present No bands detecte <SEE NOTE> kDa 13 Lyme Disease IgM Ab WB Negative Negative Lyme Disease IgM Bands Present No bands detecte <SEE NOTE> kDa 14 Lyme Disease Interpretation See Comment 15 Laboratory test finding 05/04/2015 Magnesium 1.9 mg/dL 1.9-2.7 Erythrocyte Sed Rate 16 mm/Hr High 0-14 C Reactive Protein < 1.00 mg/L < 5.00 16 Comp Metabolic Panel 05/04/2015 Sodium 135 mmol/L 133-145 Potassium 4.3 mmol/L 3.5-5.0 Chloride 103 mmol/L 101-111 Co2 Carbon Dioxide 24 mmol/L 22-32 Anion Gap 8 mmol/L 2-11 Glucose 84 mg/dL 70-100 Blood Urea Nitrogen 15 mg/dL 6-24 Creatinine 0.76 mg/dL 0.51-0.95 BUN/Creatinine Ratio 19.7 8-20 Calcium 9.4 mg/dL 8.6-10.3 Total Protein 6.7 g/dL 6.4-8.9 Albumin 4.4 g/dL 3.2-5.2 Globulin 2.3 g/dL 2-4 Albumin/Globulin Ratio 1.9 1-3 Total Bilirubin 0.50 mg/dL 0.2-1.0 Alkaline Phosphatase 39 U/L 34-104 Alt 16 U/L 7-52 Ast 18 U/L 13-39 Egfr Non- 85.6 >60 Egfr 110.1 >60 17 CBC Auto Diff 05/04/2015 White Blood Count 5.6 10^3/uL 4.8-10.8 Red Blood Count 4.55 10^6/uL 4.0-5.4 Hemoglobin 14.4 g/dL 12.0-16.0 Hematocrit 43 % 35-47 Mean Corpuscular Volume 94 fL 80-97 Mean Corpuscular Hemoglobin 32 pg High 27-31 Mean Corpuscular HGB Conc 34 g/dL 31-36 Red Cell Distribution Width 12 % 10.5-15 Platelet Count 287 10^3/uL 150-450 Mean Platelet Volume 8 um3 7.4-10.4 Abs Neutrophils 3.7 10^3/uL 1.5-7.7 Abs Lymphocytes 1.3 10^3/uL 1.0-4.8 Abs Monocytes 0.4 10^3/uL 0-0.8 Abs Eosinophils 0.1 10^3/uL 0-0.6 Abs Basophils 0.1 10^3/uL 0-0.2 Abs Nucleated RBC 0 10^3/uL Granulocyte % 65.3 % 38-83 Lymphocyte % 23.9 % Low 25-47 Monocyte % 6.4 % 1-9 Eosinophil % 2.6 % 0-6 Basophil % 1.8 % 0-2 Nucleated Red Blood Cells % 0.1 Urine DIP 04/24/2015 Specific Lima 1.01 1.01-1.02 Urine pH 5 5-6 Leukocytes NEG Neg Urine Nitrites NEG Neg Total Protein, Urine NEG Neg Urine Glucose NORM Norm Urine Ketones NEG Neg Urobilinogen NORM Norm Urine Bilirubin NEG Neg Urine Blood TRACE Neg 1 Because ethnic data is not always readily available, this report includes an eGFR for both -Americans and non- Americans. The National Kidney Disease Education Program (NKDEP) does not endorse the use of the MDRD equation for patients that are not between the ages of 18 and 70, are , have extremes of body size, muscle mass, or nutritional status, or are non- or non-. According to the National Kidney Foundation, irrespective of diagnosis, the stage of the disease is based on the level of kidney function: Stage Description GFR(mL/min/1.73 m(2)) 1 Kidney damage with normal or decreased GFR 90 2 Kidney damage with mild decrease in GFR 60-89 3 Moderate decrease in GFR 30-59 4 Severe decrease in GFR 15-29 5 Kidney failure <15 (or dialysis) 2 >100 to <200 pg/mL: likely compensated congestive heart failure (CHF) 200 to 400 pg/mL: likely moderate CHF >400 pg/mL: likely moderate to severe CHF 3 [facility] Severe Sepsis and Septic Shock Management Bundle Measure requires all lactic acids initially measuring >2.0 mmol/L be repeated. 4 Because ethnic data is not always readily available, this report includes an eGFR for both -Americans and non- Americans. The National Kidney Disease Education Program (NKDEP) does not endorse the use of the MDRD equation for patients that are not between the ages of 18 and 70, are , have extremes of body size, muscle mass, or nutritional status, or are non- or non-. According to the National Kidney Foundation, irrespective of diagnosis, the stage of the disease is based on the level of kidney function: Stage Description GFR(mL/min/1.73 m(2)) 1 Kidney damage with normal or decreased GFR 90 2 Kidney damage with mild decrease in GFR 60-89 3 Moderate decrease in GFR 30-59 4 Severe decrease in GFR 15-29 5 Kidney failure <15 (or dialysis) 5 Acute inflammation: >10.00 6 99th percentile=0.04 ng/mL Troponin results at [facility] and [facility] are not interchangeable. 7 <5.0 Negative 5.0 - 25.0 Indeterminate (Repeat testing recommended after 72 hours) >25.0 Positive Perimenopausal women can display HCG levels of up to 20 mIU/mL 8 Because ethnic data is not always readily available, this report includes an eGFR for both -Americans and non- Americans. The National Kidney Disease Education Program (NKDEP) does not endorse the use of the MDRD equation for patients that are not between the ages of 18 and 70, are , have extremes of body size, muscle mass, or nutritional status, or are non- or non-. According to the National Kidney Foundation, irrespective of diagnosis, the stage of the disease is based on the level of kidney function: Stage Description GFR(mL/min/1.73 m(2)) 1 Kidney damage with normal or decreased GFR 90 2 Kidney damage with mild decrease in GFR 60-89 3 Moderate decrease in GFR 30-59 4 Severe decrease in GFR 15-29 5 Kidney failure <15 (or dialysis) 9 REFERENCE VALUE <4.0 (Negative) Test Performed by: [place] [address] Urgent Care Physician: Rico Steven II, M.D., Ph.D. 10 Negative serology. Celiac disease unlikely. However, approximately 10% of patients with celiac disease are seronegative. Also, patients who are already adhering to a gluten-free diet may be seronegative. If celiac disease is highly clinically suspected, consider HLA-DQ typing. Test Performed by: [place] [address] Urgent Care Physician: Rico Steven II, M.D., Ph.D. 11 SEE RESULT BELOW Name: RASHEEDA ISAAC : [address]: Irwin Mcfadden III, NP Acct: [id number] Unit: [id number] AGE: 35 Location: [facility] Re01/11/16 SEX: F Status: REG REF SPEC: [id number] SCOTTY: 01/11/160958 [facility] DR: Irwin Mcfadden III LANGUAGE ASSISTANT REQ: [id number] RECD: 01/11/16 STATUS: SOUT _ ORDERED: LEVEL IV COMMENTS: [id number] FINAL DIAGNOSIS Skin, left, biopsy: -- Dermatofibroma. -- Lesional cells extend to the biopsy base and to at least one lateral specimen edge. CLINICAL HISTORY No history given PRE-OPERATIVE DIAGNOSIS D48.5 GROSS DESCRIPTION The specimen is received in formalin labeled, Left Calf Lesion, and consists of a 0.5 cm circular skin punch excised to a depth of 0.2 cm, which is bisected and entirely submitted in one cassette. Signed (signature on file) Dina Jones MD 11/25 1127 END OF REPORT * ML=Testing performed at Main Lab DEPARTMENT OF PATHOLOGY, [address] [place] [address] Rene Baez M.D. Director [facility] # [id number] 12 Normal Range 180 to 914 Indeterminate Range 145 to 180 Deficient Range <145 13 No bands detected 14 No bands detected 15 Specific serologic response to B. burgdorferi infection is not detected, but cannot rule out early infection during which low or undetectable antibody levels to B. burgdorferi may be present. If clinically indicated, a new serum specimen should be submitted in 7-14 days. ADDITIONAL INFORMATION CDC criteria require >=5 bands for IgG or >=2 bands for IgM for the Immunoblot to be considered positive. Bands (e.g.,p41) may be detected in patients without Lyme disease, and patterns not meeting the CDC criteria should be interpreted with caution. Immunoblot should be ordered only on specimens that are positive or equivocal by a FDA-licensed Lyme disease antibody screening test (e.g., EIA). Test Performed by: [place] [address] Urgent Care Physician: Rico Steven II, M.D., Ph.D. 16 Acute inflammation: >10.00 17 Because ethnic data is not always readily available, this report includes an eGFR for both -Americans and non- Americans. The National Kidney Disease Education Program (NKDEP) does not endorse the use of the MDRD equation for patients that are not between the ages of 18 and 70, are , have extremes of body size, muscle mass, or nutritional status, or are non- or non-. According to the National Kidney Foundation, irrespective of diagnosis, the stage of the disease is based on the level of kidney function: Stage Description GFR(mL/min/1.73 m(2)) 1 Kidney damage with normal or decreased GFR 90 2 Kidney damage with mild decrease in GFR 60-89 3 Moderate decrease in GFR 30-59 4 Severe decrease in GFR 15-29 5 Kidney failure <15 (or dialysis) Procedures Date CPT Code Description Status 01/11/2016 24392 BX Of Skin,Tissue, Mucous Membran Completed Encounters Type Date Location Provider CPT E/M Dx Office Visit 09/29/2017 4:30p Main Office Irwin Hillss III, [employer]PER[employer]-C 71441 M54.5 Office Visit 09/08/2017 9:15a Main Office Irwin Sturgis III, [employer]-C 03981 M54.5 Office Visit 08/25/2017 8:00a Main Office Irwin Lesa III, [employer]-C 97666 M54.9 H92.02 Office Visit 08/11/2017 9:45a Main Office Irwin Sturgis III, [employer]-C 19301 B02.23 Office Visit 01/27/2017 2:45p Main Office Irwin Lesa III, [employer]C 13532 M79.672 Office Visit 09/30/2016 2:15p Main Office Irwin Mcfadden III, [employer]C 69862 M25.562 Office Visit 09/10/2016 4:00p [place] [address] S83.412A Office Visit 06/17/2016 8:30a Main Office Irwin Mcfadden III, [employer]C 93253 R14.0 Z23 Office Visit 06/13/2016 4:30p Main Office Irwin Mcfadden III, [employer]-C 31969 R14.0 Office Visit 01/22/2016 11:00a Main Office Irwin Mcfadden III, [employer]-C 95146 D48.5 Office Visit 01/09/2016 9:30a Main Office Lina Cerna, [employer]-C 93499 H00.014 R23.8 Office Visit 08/08/2015 10:00a [place] [address] J01.90 Office Visit 07/03/2015 2:15p Main Office Irwin Mcfadden III, [employer]-C 56724 F41.9 G37.9 Office Visit 06/05/2015 4:30p Main Office Irwin Mcfadden III, [employer]-C 72215 M54.12 Office Visit 04/24/2015 1:30p Main Office Irwin Mcfadden III, [employer]-C 43306 Z00.00 R53.82 M24.812 Z23 Plan of Care Future Appointment(s):11/24/2017 4:15 pm - Irwin Mcfadden III, [employer] SUPERVISOR-C at Main [id number]/27/2017 - Irwin Mcfadden III, [employer] SUPERVISOR-CM54.5 Low back painComments:Pace of improvement has accelerated over the last 2 weeks. She is hopeful that this current pace will continue. She plans to decrease her use of Tylenol #3 as she is able. 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
[2017-11-21] MEDS ORDERED: NS 0.9% 1000 ML* 1,000 ML IV ONE (20:16)
[2017-11-21] MEDS ORDERED: methylPREDNISolone 125 MG* 2 ML VIAL IV ONE (20:16)
[2017-11-21] MEDS ORDERED: diPHENhydraMINE IV* 50 MG/ML 1 ml VIAL (BENADRYL) IV ONE (20:18)
[2017-11-21] MEDS ORDERED: Metoclopramide IV* 5 MG/ML 2 ML VIAL IV ONE (20:18)
[2017-11-21 20:43] LABS: ABS Basophils 0.1 10^3/ul (0-0.2); ABS Eosinophils 0.3 10^3/ul (0-0.6); ABS Lymphocytes 1.6 10^3/ul (1.0-4.8); ABS Monocytes 0.5 10^3/ul (0-0.8); ABS Neutrophils 3.4 10^3/ul (1.5-7.7); ABS Nucleated RBC 0 10^3/ul; Eosinophil % 5.6 % (0-6); Hematocrit 37 % (35-47); Hemoglobin 13.2 g/dl (12.0-16.0); Lymphocyte % 27.3 % (25-47); Mean Corpuscular HGB Conc 35 g/dl (31-36); Mean Corpuscular Hemoglobin 33 pg (27-31); Mean Corpuscular Volume 92 fL (80-97); Mean Platelet Volume 6.8 um3 (7.4-10.4); Nucleated Red Blood Cells % 0; Platelet Count 305 10^3/ul (150-450); Red Blood Count 4.05 10^6/ul (4.0-5.4); Red Cell Distribution Width 12 % (10.5-15)
[2017-11-21 20:56] LABS: EGFR Non-African American 88.8 (>60)
[2017-11-21] MEDS ORDERED: Ketorolac INJ* 30 MG/ML 1 ML VIAL IV PUSH ONE (21:20)
[2017-11-21 22:38] LABS: Urine Appearance Clear; Urine Blood Negative (Negative); Urine Color Straw; Urine Ketones Negative (Negative); Urine Protein Negative (Negative); Urine Specific Gravity 1.003 (1.010-1.030); Urine Urobilinogen Negative (Negative)
[2017-11-21 22:48] VITALS: BP 112/56
--- NOTE | 2017-11-22 01:02 | ED ---
Andre Denson Jennifer, scribed for Wesley Louie MD on 11/21/17 at 2013 . Complex/Multi-Sys Presentation - HPI Summary HPI Summary: The patient is a 37 year old female with history of MS who complains of sensitivity to sound today. The patient reports she began to feel body aches this morning. Then, when her neighbors were playing horseshoe she heard a clanging sound that turned suddenly turned into headache and sensitivity to sound. The patient reports she is so sensitive that even talking makes her want to vomit. She additionally reports feeling dizziness like being on a boat. The patient denies fever, vomiting. - History Of Current Complaint Chief Complaint: EDGeneral Time Seen by Provider: 11/21/17 20:06 Hx Obtained From: Patient Onset/Duration: Sudden Onset, Lasting Hours - this morning, Still Present, Worse Since Timing: Constant Severity Currently: Moderate Severity Initially: Moderate Location: Pain At: - head, ears Character: Typical Headache, Unable To Describe - Body hurts, wants to vomit Aggravating Factor(s): Sound Associated Signs And Symptoms: Positive: Other - sensitivity to sound, body aches, headache, nausea, dizziness. NEGATIVE: fever, vomiting - Allergies/Home Medications Allergies/Adverse Reactions: Allergies Allergy/AdvReac Type Severity Reaction Status Date / Time No Known Allergies Allergy Verified 11/21/17 19:58 PMH/Surg Hx/FS Hx/Imm Hx Endocrine/Hematology History: Denies: Hx Diabetes Cardiovascular History: Denies: Hx Congestive Heart Failure, Hx Hypertension, Hx Pacemaker/ICD History: Reports: Other Problems/Disorders - Secondary adrenal insufficiency Denies: Hx Dialysis, Hx Renal Disease Musculoskeletal History: Reports: Other Musculoskeletal History - MS Sensory History: Denies: Hx Hearing Aid Neurological History: Reports: Other Neuro Impairments/Disorders - Multiple Sclerosis, MS flare in mid- July, PAIN [facility] PT Psychiatric History: Denies: Hx Panic Disorder - Surgical History Surgery Procedure, Year, and Place: TUBAL LIGATION - Immunization History Date of Tetanus Vaccine: Unk Date of Influenza Vaccine: Fall 2012 Infectious Disease History: Yes Infectious Disease History: Reports: Hx of Known/Suspected MRSA, Hx Shingles - June 2017 Denies: Traveled Outside the [place] in Last 30 Days - Family History Known Family History: Negative: Cardiac Disease, Hypertension, Diabetes - Social History Alcohol Use: None Hx Substance Use: No Substance Use Type: Reports: None Substance Use Comment - Amount & Last Used: medical marijuana d/t MS Hx Tobacco Use: No Smoking Status (MU): Former Smoker Have You Smoked in the Last Year: No Review of Systems Negative: Fever ENT: Other - Sensitivity to sound Positive: Nausea. Negative: Vomiting Positive: Myalgia Neurological: Other - Dizziness Positive: Headache All Other Systems Reviewed And Are Negative: Yes Physical Exam - Summary Physical Exam Summary: GENERAL: ~Patient is a well developed and nourished F who is lying comfortable in the stretcher. ~Patient is not in any acute respiratory distress. HEAD AND FACE: Normocephalic EYES: PERRLA, EOMI x 2. EARS: Hearing grossly intact. MOUTH: Oropharynx within normal limits. NECK: Supple, trachea is midline, no adenopathy, no JVD, no carotid bruit. CHEST: Symmetric, no tenderness at palpation LUNGS: Clear to auscultation bilaterally. No wheezing or crackles. CVS: Regular rate and rhythm, S1 and S2 present, no murmurs or gallops appreciated. ABDOMEN: Soft, non-tender. Bowel sounds are normal. No abdominal abnormal pulsations. EXTREMITIES: Full ROM in all major joints, no edema, no cyanosis or clubbing. NEURO: Alert and oriented x 3. No acute neurological deficits. Speech is normal and follows commands. CN 2-12 grossly intact, no dysmetria on finger to nose testing SKIN: Dry and warm Triage Information Reviewed: Yes Vital Signs On Initial Exam: Initial Vitals Temp Pulse Resp BP Pulse Ox 98.6 F 98 16 114/67 99 11/21/17 19:55 11/21/17 19:55 11/21/17 19:55 11/21/17 19:55 11/21/17 19:55 Vital Signs Reviewed: Yes Diagnostics - Vital Signs Vital Signs Temp Pulse Resp BP Pulse Ox 11/21/17 19:55 98.6 F 98 16 114/67 99 - Laboratory Lab Results: Lab Results 11/21/17 11/21/17 11/21/17 Range/Units 20:27 20:27 20:27 WBC 6.0 (3.5-10.8) 10^3/ul RBC 4.05 (4.0-5.4) 10^6/ul Hgb 13.2 (12.0-16.0) g/dl Hct 37 (35-47) % MCV 92 (80-97) fL MCH 33 H (27-31) pg MCHC 35 (31-36) g/dl RDW 12 (10.5-15) % Plt Count 305 (150-450) 10^3/ul MPV 6.8 L (7.4-10.4) um3 Neut % (Auto) 57.4 (38-83) % Lymph % (Auto) 27.3 (25-47) % Clayton % (Auto) 8.3 H (0-7) % Eos % (Auto) 5.6 (0-6) % Baso % (Auto) 1.4 (0-2) % Absolute Neuts (auto) 3.4 (1.5-7.7) 10^3/ul Absolute Lymphs (auto) 1.6 (1.0-4.8) 10^3/ul Absolute Monos (auto) 0.5 (0-0.8) 10^3/ul Absolute Eos (auto) 0.3 (0-0.6) 10^3/ul Absolute Basos (auto) 0.1 (0-0.2) 10^3/ul Absolute Nucleated RBC 0 10^3/ul Nucleated RBC % 0 ESR 10 (0-14) mm/Hr Sodium 135 L (139-145) mmol/L Potassium 3.6 (3.5-5.0) mmol/L Chloride 104 (101-111) mmol/L Carbon Dioxide 29 (22-32) mmol/L Anion Gap 2 (2-11) mmol/L BUN 8 (6-24) mg/dL Creatinine 0.73 (0.51-0.95) mg/dL Est GFR ( Amer) 114.1 (>60) Est GFR (Non-Af Amer) 88.8 (>60) BUN/Creatinine Ratio 11.0 (8-20) Glucose 96 (70-100) mg/dL Lactic Acid 0.7 (0.5-2.0) mmol/L Calcium 9.2 (8.6-10.3) mg/dL Total Bilirubin 0.20 (0.2-1.0) mg/dL AST 16 (13-39) U/L ALT 14 (7-52) U/L Alkaline Phosphatase 57 (34-104) U/L C-React Prot High Sens 0.56 mg/L Total Protein 6.5 (6.4-8.9) g/dL Albumin 4.2 (3.2-5.2) g/dL Globulin 2.3 (2-4) g/dL Albumin/Globulin Ratio 1.8 (1-3) Beta HCG, Quant < 0.60 mIU/mL Urine Color Urine Appearance Urine pH (5-9) Ur Specific [place] (1.010-1.030) Urine Protein (Negative) Urine Ketones (Negative) Urine Blood (Negative) Urine Nitrate (Negative) Urine Bilirubin (Negative) Urine Urobilinogen (Negative) Ur Leukocyte Esterase (Negative) Urine Glucose (Negative) 11/21/17 Range/Units 22:25 WBC (3.5-10.8) 10^3/ul RBC (4.0-5.4) 10^6/ul Hgb (12.0-16.0) g/dl Hct (35-47) % MCV (80-97) fL MCH (27-31) pg MCHC (31-36) g/dl RDW (10.5-15) % Plt Count (150-450) 10^3/ul MPV (7.4-10.4) um3 Neut % (Auto) (38-83) % Lymph % (Auto) (25-47) % Clayton % (Auto) (0-7) % Eos % (Auto) (0-6) % Baso % (Auto) (0-2) % Absolute Neuts (auto) (1.5-7.7) 10^3/ul Absolute Lymphs (auto) (1.0-4.8) 10^3/ul Absolute Monos (auto) (0-0.8) 10^3/ul Absolute Eos (auto) (0-0.6) 10^3/ul Absolute Basos (auto) (0-0.2) 10^3/ul Absolute Nucleated RBC 10^3/ul Nucleated RBC % ESR (0-14) mm/Hr Sodium (139-145) mmol/L Potassium (3.5-5.0) mmol/L Chloride (101-111) mmol/L Carbon Dioxide (22-32) mmol/L Anion Gap (2-11) mmol/L BUN (6-24) mg/dL Creatinine (0.51-0.95) mg/dL Est GFR ( Amer) (>60) Est GFR (Non-Af Amer) (>60) BUN/Creatinine Ratio (8-20) Glucose (70-100) mg/dL Lactic Acid (0.5-2.0) mmol/L Calcium (8.6-10.3) mg/dL Total Bilirubin (0.2-1.0) mg/dL AST (13-39) U/L ALT (7-52) U/L Alkaline Phosphatase (34-104) U/L C-React Prot High Sens mg/L Total Protein (6.4-8.9) g/dL Albumin (3.2-5.2) g/dL Globulin (2-4) g/dL Albumin/Globulin Ratio (1-3) Beta HCG, Quant mIU/mL Urine Color Straw Urine Appearance Clear Urine pH 5.0 (5-9) Ur Specific [place] 1.003 L (1.010-1.030) Urine Protein Negative (Negative) Urine Ketones Negative (Negative) Urine Blood Negative (Negative) Urine Nitrate Negative (Negative) Urine Bilirubin Negative (Negative) Urine Urobilinogen Negative (Negative) Ur Leukocyte Esterase Negative (Negative) Urine Glucose Negative (Negative) Result Diagrams: 11/21/17 20:27 11/21/17 20:27 Lab Statement: Any lab studies that have been ordered have been reviewed, and results considered in the medical decision making process. Re-Evaluation - Re-Evaluation First Eval Re-Evaluation Time: 21:51 Change: Improved Comment: Upon re-evaluation, the patient is feeling much better. I will discharge the patient after urinalysis returns. Complex Multi-Symp Course/Dx Course Of Treatment: The patient is a 37 year old female with history of MS who complains of sensitivity to sound today. In the ED course the patient was given Benadryl, Toradol, Solu-MEDROL, Reglan, and IV fluids. Bloodwork and urinalysis were obtained and are unremarkable. Patient is much improvement. Patient is concerned that her MS might be flaring up and so she was sent home on a short course of steroid. She will follow up with her neurologist. Strict return precautions given. - Diagnoses Provider Diagnoses: Lightheadedness Discharge - Sign-Out/Discharge Documenting (check all that apply): Discharge/Admit/Transfer - Discharge Plan Condition: Stable Disposition: HOME Prescriptions: predniSONE TAB* [Deltasone TAB*] 60 mg PO DAILY 4 Days #12 tab Patient Education Materials: Lightheadedjorge luis (ED) Referrals: Irwin Mcfadden III PACKAGE LINE RELIEF OPERATOR [Primary Care Provider] - Additional Instructions: Follow up with your neurologist in three days. RETURN TO THE EMERGENCY DEPARTMENT FOR ANY NEW OR WORSENING SYMPTOMS. - Billing Disposition and Condition Condition: STABLE Disposition: HOME The documentation as recorded by the Andre lyn Jennifer accurately reflects the service I personally performed and the decisions made by , Wesley Louie MD.
== END 2017-11-21 22:37 | disposition home or self-care (01) ==
LOC: ED 19:51
DX: R11.0 Nausea (principal); Z87.891 Personal history of nicotine dependence; R51 Headache; R42 Dizziness and giddiness
CPT/HCPCS: 36415; 80053; 81003; 83605; 84702; 85025; 85652; 86141; 96374; 96375; 99282; J1200; J1885; J2765; J2930

== ENCOUNTER 2017-12-12 22:01 | Emergency (ER) | payer OTHER ==
--- OUTSIDE RECORDS SUMMARY | 2017-12-12 22:23 | XMS REPORT ---
:1980 External Reference #:[id number] Author Organization [facility] Address [address] [place] [address] Phone [phone] Care Team Providers Name Role Phone Irwin Mcfadden FNP-C Primary Care Physician Unavailable Payers Type Date Identification Numbers Payment Provider Subscriber Commercial Effective: Policy Number: Song WALTON Ralf Denson 2014 [id number] Expires: 2015 Group Name: [place] [address] [address] PayID: [id number] CHRISTIANA Fernandez [id number] Medigap Part B Effective: Policy Number: Medicaid/Computer Rasheeda Denson 2015 [id number] Science Expires: 2015 Group Name: 1 1 [address] PayID: [id number] [place] [address] Commercial Expires: 2015 Policy Number: Nils Denson [id number] Medicaid PayID: [id number] [address] [place] [id number] Commercial Effective: Policy Number: Nils Denson 2015 [id number] Medicaid Expires: 2016 PayID: [id number] [address] [place] [phone] Commercial Effective: Policy Number: Saúl Del Toro-Edison Denson 2016 [id number] Med Expires: 2016 PayID: [id number] [address] [place] [address] Commercial Effective: Policy Number: Nils Denson 2016 [id number] Medicaid PayID: [id number] [address] [place] [address] Problems Description No Information Family History Date [...] Form Strength Qnty SIG Indications Ordering Provider Lyrica 11/24 Active Capsules 25mg 90cap 1 cap by B02.23 s mouth at Lesa bedtime III, for 3 SURGERY AID-C days. If tolerated, add a 2nd cap at dinner for 3 days. If tolerated, advance to tid. Lidocaine 08/11 Active Patches 5% 30uni apply one B02.23 ts patch to Lesa affected III, area for SURGERY AID-C 12 hours on, then 12 hours off. Acetaminophen-Cod 08/11 Active Tablets 300-30mg 60tab 1 tab by B02.23 Irwin hedrick #3 s mouth Lesa every 6 III, hours as SURGERY AID-C needed for severe pain Methylprednisolon 07/28 Active Solution 125mg/ml 1unit Administer Walter e Sodium Rec s 8mL Chase, Succinate (1,000mg M.D. total) IV daily. Dilute in 250mL sodium chloride 0.9% once daily x 2 days. Infuse over 45 minutes. Tretinoin 05/02 Active Cream 0.025% 40gm apply a pea-sized Lesa amount to III, face at SURGERY AID-C bedtime Fluticasone 08/08 Active Suspension 50mcg/Act 1unit 1 J01.90 Irwin Propionate s intranasal Lesa daily III, SURGERY AID-C Diazepam 07/03 Active Tablets 5mg 120ta 1 tab by G37.9 bs mouth [place] every 6-8 III, hours as SURGERY AID-C needed for muscle spasm. Amantadine HCL Active Capsules 100mg Unknown /0000 Carbamazepine ER Active Caps ER 200mg Unknown /0000 12HR Copaxone Active Soln Unknown /0000 Prefill Syringe Duloxetine HCL Active Caps DR 60mg Unknown /0000 Part Hydrocortisone Active Tablets 5mg 10mg in Unknown /0000 the Am, 5mg at noon, 5mg at 1600 Prednisone Active Tablets 20mg Unknown /0000 Dicyclomine HCL 06/13 Hx Tablets 20mg 30tab 1 tab by R14.0 Irwin s mouth 4 Koloa - times III, 08/11 daily for SURGERY AID-C 7 days Ilotycin 01/08 Hx Ointment 5mg/GM 1unit apply a H00.014 s thin layer Nehemiah, - to left SURGERY AID-C 08/11 eye twice daily x 5 days Azithromycin 08/08 Hx Tablets 250mg 6tabs take 2 J01.90 Freddie tablets by Vera - joey navarro MD 08/11 time take one daily for 4 days Tizanidine HCL 05/08 Hx Tablets 4mg 30tab 1 to 1 07/14 s tabs by Koloa - mouth III, 09/08 every 8 SURGERY AID-C hours as needed for muscle spasm Hydrocortisone 05/04 Hx Tablets 10mg 45tab take 1 s & 07/14 Lesa - tabs at III, 10/27 noon. SURGERY AID-C Diazepam 05/04 Hx Tablets 5mg 20tab 1 tab by Irwin s mouth Koloa - every 6-8 III, 05/08 hours as SURGERY AID-C needed for muscle spasm. Metaxalone 04/24 Hx Tablets 800mg 90tab 1 tab by M24.812 Irwin s mouth Koloa - three III, 05/08 times a SURGERY AID-C day for muscle spasm Clonazepam Hx Tablets 0.5mg Unknown /0000 Dispers - 07/03 Gabapentin Hx Capsules 300mg 1 tab by Unknown /0000 mouth once - a day. 08/11 Immunizations CPT Code Status Date Vaccine Lot # 57761 Given 06/17/2016 Influenza Virus Vaccine, Quadrivalent, 3 Yr > [id number] Quad, Preserv Free 21045 Given 04/24/2015 Influenza Virus Vaccine, Quadrivalent, 3 Yr > [id number] Quad, Preserv Free Vital Signs Date Vital Result Comment 12/08/2017 Weight 159.00 lb Weight in kg's 72.122 BP Systolic 102 mmHg BP Diastolic 70 mmHg Heart Rate 88 /min Body Temperature 98.4 F Respiratory Rate 16 /min 11/24/2017 Weight 159.19 lb Weight in kg's 72.207 BP Systolic 122 mmHg BP Diastolic 70 mmHg Heart Rate 88 /min Body Temperature 99.9 F Respiratory Rate 16 /min 10/27/2017 Weight 160.00 lb Weight in kg's [...] 89 /min Body Temperature 97.9 F Motrin AT 630Am Right Visual Acuity Distance 20/30 Left [...] Mass Index) 24.7 kg/m2 Last Menstrual Period [id number] Results Test Date Test Result H/L Range Note Urinalysis Profile 11/21/2017 Urine Color Straw Urine Appearance Clear Urine Specific [place] 1.003 Low 1.010-1.030 Urine pH 5.0 5-9 Urine Urobilinogen Negative Negative Urine Ketones Negative Negative Urine Protein Negative Negative Urine Leukocytes Negative Negative Urine Blood Negative Negative Urine Nitrite Negative Negative Urine Bilirubin Negative Negative Urine Glucose Negative Negative Laboratory test finding 11/21/2017 Lactic Acid 0.7 mmol/L 0.5-2.0 1 Comp Metabolic Panel 11/21/2017 Sodium 135 mmol/L Low 139-145 Potassium 3.6 mmol/L 3.5-5.0 Chloride 104 mmol/L 101-111 Co2 Carbon Dioxide 29 mmol/L 22-32 Anion Gap 2 mmol/L 2-11 Glucose 96 mg/dL 70-100 Blood Urea Nitrogen 8 mg/dL 6-24 Creatinine 0.73 mg/dL 0.51-0.95 BUN/Creatinine Ratio 11.0 8-20 Calcium 9.2 mg/dL 8.6-10.3 Total Protein 6.5 g/dL 6.4-8.9 Albumin 4.2 g/dL 3.2-5.2 Globulin 2.3 g/dL 2-4 Albumin/Globulin Ratio 1.8 1-3 Total Bilirubin 0.20 mg/dL 0.2-1.0 Alkaline Phosphatase 57 U/L 34-104 Alt 14 U/L 7-52 Ast 16 U/L 13-39 Egfr Non- 88.8 >60 Egfr 114.1 >60 2 Laboratory test finding 11/21/2017 CRP High Sensitivity 0.56 mg/L 3 HCG < 0.60 mIU/mL 4 CBC Auto Diff 11/21/2017 White Blood Count 6.0 10^3/uL 3.5-10.8 Red Blood Count 4.05 10^6/uL 4.0-5.4 Hemoglobin 13.2 g/dL 12.0-16.0 Hematocrit 37 % 35-47 Mean Corpuscular Volume 92 fL 80-97 Mean Corpuscular Hemoglobin 33 pg High 27-31 Mean Corpuscular HGB Conc 35 g/dL 31-36 Red Cell Distribution Width 12 % 10.5-15 Platelet Count 305 10^3/uL 150-450 Mean Platelet Volume 6.8 um3 Low 7.4-10.4 Abs Neutrophils 3.4 10^3/uL 1.5-7.7 Abs Lymphocytes 1.6 10^3/uL 1.0-4.8 Abs Monocytes 0.5 10^3/uL 0-0.8 Abs Eosinophils 0.3 10^3/uL 0-0.6 Abs Basophils 0.1 10^3/uL 0-0.2 Abs Nucleated RBC 0 10^3/uL Granulocyte % 57.4 % 38-83 Lymphocyte % 27.3 % 25-47 Monocyte % 8.3 % High 0-7 Eosinophil % 5.6 % 0-6 Basophil % 1.4 % 0-2 Nucleated Red Blood Cells % 0 Laboratory test finding 11/21/2017 Erythrocyte Sed Rate 10 mm/Hr 0-14 Comp Metabolic Panel 07/23/2017 Sodium 138 mmol/L [...] Egfr Non- 98.0 >60 Egfr 126.0 >60 5 CBC Auto Diff 07/23/2017 White Blood Count [...] 0-2 Nucleated Red Blood Cells % 0 Urinalysis Profile 07/23/2017 Urine Color Yellow Urine Appearance Cloudy Urine Specific [place] 1.012 1.010-1.030 Urine pH 8.0 5-9 Urine Urobilinogen Negative Negative Urine Ketones Negative Negative Urine Protein Negative Negative Urine Leukocytes Negative Negative Urine Blood Negative Negative Urine Nitrite Negative Negative Urine Bilirubin Negative Negative Urine Glucose Negative Negative Laboratory test finding 11/20/2016 Inr 0.92 0.89-1.11 Partial Thrombo Time PTT 30.2 seconds 26.0-36.3 B-Type Natriuretic Peptide BNP 13 pg/mL 6 Lactic Acid 0.9 mmol/L 0.5-2.0 7 CBC Auto Diff 11/20/2016 White Blood Count [...] Egfr Non- 98.5 >60 Egfr 126.7 >60 8 Laboratory test finding 11/20/2016 Magnesium 2.1 mg/dL 1.9-2.7 Lipase 24 U/L 11.0-82.0 Creatine Kinase 60 U/L 10-223 C Reactive Protein < 1.00 mg/L < 5.00 9 Troponin-I (TnI) 0.00 ng/mL <0.04 10 CKMB 11/20/2016 CKMB ng/mL 1.6 ng/mL 0.6-6.3 Laboratory test finding 11/20/2016 HCG < 0.60 mIU/mL 11 TSH (Thyroid Stimulating Horm) 1.28 mcIU/mL 0.34-5.60 [...] Egfr Non- 100.2 >60 Egfr 128.9 >60 12 Celiac Panel 06/17/2016 Tissue Transglutaminase IgA Ab <1.2 U/mL 13 Immunoglobulin A 284 mg/dL 61 - 356 Celiac Interpretation See Comment 14 Laboratory test 01/11/2016 Surgical Pathology SEE RESULT BELOW 15 finding Laboratory test 08/08/2015 Strep Screen Negative Neg finding Laboratory test 07/11/2015 Vitamin B12 796 pg/mL 180-914 16 finding Laboratory test 05/04/2015 Lola (Antinuclear Negative Negative finding Antibodies) Lyme Western Blot 05/04/2015 Lyme Disease IgG Ab Negative Negative WB Lyme Disease IgG Bands Present No bands detecte <SEE NOTE> kDa 17 Lyme Disease IgM Ab WB Negative Negative Lyme Disease IgM Bands Present No bands detecte <SEE NOTE> kDa 18 Lyme Disease Interpretation See Comment 19 Laboratory test finding 05/04/2015 Magnesium 1.9 mg/dL 1.9-2.7 Erythrocyte Sed Rate 16 mm/Hr High 0-14 C Reactive Protein < 1.00 mg/L < 5.00 20 Comp Metabolic Panel 05/04/2015 Sodium 135 mmol/L [...] Egfr Non- 85.6 >60 Egfr 110.1 >60 21 CBC Auto Diff 05/04/2015 White Blood Count [...] Cells % 0.1 Urine DIP 04/24/2015 Specific [place] 1.01 1.01-1.02 Urine pH 5 5-6 Leukocytes NEG Neg Urine Nitrites NEG Neg Total Protein, Urine NEG Neg Urine Glucose NORM Norm Urine Ketones NEG Neg Urobilinogen NORM Norm Urine Bilirubin NEG Neg Urine Blood TRACE Neg 1 [facility] Severe Sepsis and Septic Shock Management Bundle Measure requires all lactic acids initially measuring >2.0 mmol/L be repeated. 2 Because ethnic data is not always readily [...] 15-29 5 Kidney failure <15 (or dialysis) 3 Low risk: <1.00 Average risk: 1.00-3.00 High risk: >3.00 4 <5.0 Negative 5.0 - 25.0 Indeterminate (Repeat testing recommended after 72 hours) >25.0 Positive Perimenopausal women can display HCG levels of up to 20 mIU/mL 5 Because ethnic data is not always readily [...] 15-29 5 Kidney failure <15 (or dialysis) 6 >100 to <200 pg/mL: likely compensated congestive heart failure (CHF) 200 to 400 pg/mL: likely moderate CHF >400 pg/mL: likely moderate to severe CHF 7 [facility] Severe Sepsis and Septic Shock Management Bundle Measure requires all lactic acids initially measuring >2.0 mmol/L be repeated. 8 Because ethnic data is not always [...] 5 Kidney failure <15 (or dialysis) 9 Acute inflammation: >10.00 10 99th percentile=0.04 ng/mL Troponin results at [facility] and [facility] are not interchangeable. 11 <5.0 Negative 5.0 - 25.0 Indeterminate (Repeat testing recommended after 72 hours) >25.0 Positive Perimenopausal women can display HCG levels of up to 20 mIU/mL 12 Because ethnic data is not always readily [...] 15-29 5 Kidney failure <15 (or dialysis) 13 REFERENCE VALUE <4.0 (Negative) Test Performed by: [place] [address] Epic Cadence Analyst: Rico Steven II, M.D., Ph.D. 14 Negative serology. Celiac disease unlikely. However, approximately 10% of patients with celiac disease are seronegative. Also, patients who are already adhering to a gluten-free diet may be seronegative. If celiac disease is highly clinically suspected, consider HLA-DQ typing. Test Performed by: [place] [address] Epic Cadence Analyst: Rico Steven II, M.D., Ph.D. 15 SEE RESULT BELOW Name: PONCHORASHEEDA Rasta : [address]: Irwin Mcfadden III, NP Acct: [id number] Unit: [id number] AGE: 35 Location: LABRSP Re01/11/16 SEX: F Status: REG REF SPEC: [id number] SCOTTY: 01/11/16-[address] [facility] [address]: Irwin Mcfadden III NEWSPAPER COPY EDITOR REQ: [id number] RECD: 01/11/16-1205 STATUS: SOUT _ ORDERED: LEVEL IV COMMENTS: [id number] FINAL DIAGNOSIS Skin, left, biopsy: -- Dermatofibroma. [...] performed at Main Lab DEPARTMENT OF PATHOLOGY, [address] [place] [address] Rene Baez M.D. Director [facility] # [id number] 16 Normal Range 180 to 914 Indeterminate Range 145 to 180 Deficient Range <145 17 No bands detected 18 No bands detected 19 Specific serologic response to B. burgdorferi infection [...] screening test (e.g., EIA). Test Performed by: [place] [address] Epic Cadence Analyst: Rico Steven II, M.D., Ph.D. 20 Acute inflammation: >10.00 21 Because ethnic data is not always readily [...] Procedures Date CPT Code Description Status 01/11/2016 76939 BX Of Skin,Tissue, Mucous Membran Completed Encounters Type Date Location Provider CPT E/M Dx Office Visit 12/08/2017 9:00a [facility] Irwin Mcfadden [facility], [address] M54.5 [facility] B02.23 Office Visit 11/24/2017 9:00a [facility] Irwin Mcfadden III, SURGERY AID-C [address]5810 M54.5 B02.23 Office Visit 10/27/2017 4:15p Main Office Irwin Hillss III, SURGERY AID-C 05358 M54.5 B02.23 Office Visit 10/13/2017 9:15a Main Office Irwin Hillss III, SURGERY AID-C 43812 M54.5 B02.23 Office Visit 09/29/2017 4:30p Main Office Irwin Hillss III, SURGERY AID-C 91074 M54.5 Office Visit 09/08/2017 9:15a Main Office Irwin Hillss III, SURGERY AID-C 31838 M54.5 Office Visit 08/25/2017 8:00a Main Office Irwin Hillss III, SURGERY AID-C 55055 M54.9 H92.02 Office Visit 08/11/2017 9:45a Main Office Irwin Hillss III, SURGERY AID-C 28755 B02.23 Office Visit 01/27/2017 2:45p Main Office Irwin Hillss III, SURGERY AID-C 12533 M79.672 Office Visit 09/30/2016 2:15p Main Office Irwin Hillss III, SURGERY AID-C 30505 M25.562 Office Visit 09/10/2016 4:00p [place] [address] S83.412A Office Visit 06/17/2016 8:30a Main Office Irwin Hillss III, SURGERY AID-C 91977 R14.0 Z23 Office Visit 06/13/2016 4:30p Main Office Irwin Hillss III, SURGERY AID-C 86506 R14.0 Office Visit 01/22/2016 11:00a Main Office Irwin Hillss III, SURGERY AID-C 57288 D48.5 Office Visit 01/09/2016 9:30a Main Office Lina Cerna, SURGERY AID-C 33029 H00.014 R23.8 Office Visit 08/08/2015 10:00a [place] [address] J01.90 Office Visit 07/03/2015 2:15p Main Office Irwin Hillss III, SURGERY AID-C 19223 F41.9 G37.9 Office Visit 06/05/2015 4:30p Main Office Irwin Mcfadden RERE, SURGERY AID-C 03368 M54.12 Office Visit 04/24/2015 1:30p Main Office Irwin Mcfadden RERE, SURGERY AID-C 89292 Z00.00 R53.82 M24.812 Z23 Plan of Care Future Appointment(s):12/22/2017 9:00 am - MATTHEW Mascorro III-C at [facility]12/08/2017 - Irwin Lesa JERNIGAN, SURGERY AID-CM54.5 Low back painComments:I am hopeful that Vika will be the answer to reducing her need for Codeine to manage pain and complete ADLs. She will increase to TID dosing today. If tolerated, we will likely increase her to 50mg TID or 75mg TID next week. I advised her to seek out a mental health professional We will continue 2week interval appointments in an attempt to quickly respond to changing pain needs and wean her downon pain medication.B02.23 Postherpetic polyneuropathyComments:Continue current regimen.
--- OUTSIDE RECORDS SUMMARY | 2017-12-12 22:24 | XMS REPORT ---
:1980 External Reference #:[id number] Author Organization Formerly [facility] Address [address] [place] [address] Phone [phone] Care Team Providers Name Role Phone Irwin Mcfadden FNP-C Primary Care Physician Unavailable Payers Type Date Identification Numbers Payment Provider Subscriber Commercial Effective: Policy Number: Song WALTON Ralf Isaac 2014 [id number] Expires: 2015 Group Name: [place] [address] [address] PayID: [id number] CHRISTIANA Fernandez [id number] Medigap Part B Effective: Policy Number: Medicaid/Computer Rasheeda Isaac 2015 [id number] Science Expires: 2015 Group Name: 1 1 [address] PayID: [id number] [place] [address] Commercial Expires: 2015 Policy Number: Nils Isaac [id number] Medicaid PayID: [id number] [address] [place] [phone] Commercial Effective: Policy Number: Nils Isaac 2015 [id number] Medicaid Expires: 2016 PayID: [id number] [address] [place] [phone] Commercial Effective: Policy Number: Saúl Del Toro-Edison Isaac 2016 [id number] Med Expires: 2016 PayID: [id number] [address] [place] [address] Commercial Effective: Policy Number: Nils Isaac 2016 [id number] Medicaid PayID: [id number] [address] [place] [address] Problems Description No Information Family History Date [...] mouth at Lesa bedtime III, for 3 ECCLESIASTICAL WORKER-C days. If tolerated, add a 2nd cap at dinner for 3 days. If tolerated, advance to tid. Lidocaine 08/11 Active Patches 5% 30uni apply one B02.23 ts patch to Lesa affected III, area for E[employer]IA[employer]ICAL WORKER-C 12 hours on, then 12 hours off. Acetaminophen-Cod 08/11 Active Tablets 300-30mg 60tab 1 tab by B02.23 Irwin hedrick #3 s mouth Lesa every 6 III, hours as E[employer]IA[employer]ICAL WORKER-C needed for severe pain Methylprednisolon 07/28 Active Solution 125mg/ml 1unit Administer Walter e Sodium Rec s 8mL Chase, Succinate (1,000mg M.D. total) IV daily. Dilute in 250mL sodium chloride 0.9% once daily x 2 days. Infuse over 45 minutes. Tretinoin 05/02 Active Cream 0.025% 40gm apply a pea-sized Lesa amount to III, face at ECCLESIASTICAL WORKER-C bedtime Fluticasone 08/08 Active Suspension 50mcg/Act 1unit 1 J01.90 Irwin Propionate s intranasal Lesa daily III, [employer] WORKER[employer]C Diazepam 07/03 Active Tablets 5mg 120ta 1 tab by G37.9 bs mouth Conley every 6-8 III, hours as E[employer]IA[employer]ICAL WORKER-C needed for muscle spasm. Amantadine HCL Active [...] tab by R14.0 Irwin s mouth 4 Conley - times III, 08/11 daily for E[employer] WORKER-C 7 days Ilotycin 01/08 Hx Ointment 5mg/GM 1unit apply a H00.014 s thin layer Nehemiah, - to left [employer] WORKER-C 08/11 eye twice daily x 5 days Azithromycin 08/08 Hx Tablets 250mg 6tabs take 2 J01.90 Freddie tablets by Vera - joey navarro MD 08/11 time take one daily for 4 days Tizanidine HCL 05/08 Hx Tablets 4mg 30tab 1 to 1 07/14 s tabs by Conley - mouth III, 09/08 every 8 [employer] WORKER[employer] hours as needed for muscle spasm Hydrocortisone 05/04 Hx Tablets 10mg 45tab take 1 s & 07/14 Lesa - tabs at III, 10/27 noon. 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 Metaxalone 04/24 Hx Tablets 800mg 90tab 1 tab by M24.812 Irwin s mouth Conley - three III, 05/08 times a E[employer] WORKER-C day for muscle spasm Clonazepam Hx Tablets 0.5mg Unknown /0000 Dispers - 07/03 Gabapentin Hx Capsules 300mg 1 tab by Unknown /0000 mouth once - a day. 08/11 Immunizations CPT Code Status Date Vaccine Lot # 56928 Given 06/17/2016 Influenza Virus Vaccine, Quadrivalent, 3 Yr > [id number] Quad, Preserv Free [id number] Given 04/24/2015 Influenza Virus Vaccine, Quadrivalent, 3 Yr > [id number] Quad, Preserv Free Vital Signs Date Vital Result Comment 11/24/2017 Weight 159.19 lb Weight in kg's [...] Mass Index) 24.7 kg/m2 Last Menstrual Period [id number] Results Test Date Test Result H/L Range Note Urinalysis Profile 11/21/2017 Urine Color Straw Urine Appearance Clear Urine Specific [place] 1.003 Low 1.010-1.030 Urine pH 5.0 5-9 [...] Color Yellow Urine Appearance Cloudy Urine Specific [place] 1.012 1.010-1.030 Urine pH 8.0 5-9 Urine [...] Cells % 0.1 Urine DIP 04/24/2015 Specific [place] 1.01 1.01-1.02 Urine pH 5 5-6 Leukocytes NEG Neg Urine Nitrites NEG Neg Total Protein, Urine NEG Neg Urine Glucose NORM Norm Urine Ketones NEG Neg Urobilinogen NORM Norm Urine Bilirubin NEG Neg Urine Blood TRACE Neg 1 [facility] Severe Sepsis and Septic Shock Management [...] pg/mL: likely moderate to severe CHF 7 [facility] Severe Sepsis and Septic Shock Management [...] 10 99th percentile=0.04 ng/mL Troponin results at [facility] and [facility] are not interchangeable. 11 <5.0 Negative 5.0 [...] REFERENCE VALUE <4.0 (Negative) Test Performed by: [place] [id number] Entry Level Administrative Assistant: Rico Steven II, M.D., Ph.D. 14 Negative serology. Celiac disease unlikely. However, approximately 10% of patients with celiac disease are seronegative. Also, patients who are already adhering to a gluten-free diet may be seronegative. If celiac disease is highly clinically suspected, consider HLA-DQ typing. Test Performed by: [place] [id number] Entry Level Administrative Assistant: Rico Steven II, M.D., Ph.D. 15 SEE RESULT BELOW Name: RASHEEDA ISAAC : [address]: Irwin Mcfadden III, NP Acct: [id number] Unit: [id number] AGE: 35 Location: [facility] Re01/11/16 SEX: F Status: REG REF SPEC: [id number] SCOTTY: 01/11/16-0958 [facility] DR: Irwin Mcfadden III CHIEF II DISPATCHER REQ: [id number] RECD: 01/11/16 STATUS: SOUT _ ORDERED: LEVEL IV COMMENTS: [id number] FINAL DIAGNOSIS Skin, left, biopsy: -- Dermatofibroma. [...] performed at Main Lab DEPARTMENT OF PATHOLOGY, [address] [place] [address] Rene Baez M.D. Director [facility] # [id number] 16 Normal Range 180 to 914 Indeterminate [...] screening test (e.g., EIA). Test Performed by: [place] [address] Entry Level Administrative Assistant: Rico Steven II, M.D., Ph.D. 20 Acute [...] Procedures Date CPT Code Description Status 01/11/2016 65003 BX Of Skin,Tissue, Mucous Membran Completed Encounters Type Date Location Provider CPT E/M Dx Office Visit 11/24/2017 9:00a [facility] [place], [address] M54.5 ECC[employer]IA[employer]ICAL WORKER-C B02.23 Office Visit 10/27/2017 4:15p Main Office Irwin Mcfadden III, ECCLESIASTICAL WORKER-C 91353 M54.5 B02.23 Office Visit 10/13/2017 9:15a Main Office Irwin Lesa III, ECCLESIASTICAL WORKER-C 85402 M54.5 B02.23 Office Visit 09/29/2017 4:30p Main Office Irwin Mcfadden III, ECCLESIASTICAL WORKER-C 77293 M54.5 Office Visit 09/08/2017 9:15a Main Office Irwin Mcfadden III, ECCLESIASTICAL WORKER-C 70766 M54.5 Office Visit 08/25/2017 8:00a Main Office Irwin Mcfadden III, ECCLESIASTICAL WORKER-C [address]7467 M54.9 H92.02 Office Visit 08/11/2017 9:45a Main Office Irwin Mcfadden III, ECCLESIASTICAL WORKER-C 46758 B02.23 Office Visit 01/27/2017 2:45p Main Office Irwin Mcfadden III, ECCLESIASTICAL WORKER-C 63130 M79.672 Office Visit 09/30/2016 2:15p Main Office Irwin Mcfadden III, ECCLESIASTICAL WORKER-C 20963 M25.562 Office Visit 09/10/2016 4:00p [place] [address] S83.412A Office Visit 06/17/2016 8:30a Main Office Irwin Mcfadden III, ECCLESIASTICAL WORKER-C 51954 R14.0 Z23 Office Visit 06/13/2016 4:30p Main Office Irwin Mcfadden III, ECCLESIASTICAL WORKER-C [address]7812 R14.0 Office Visit 01/22/2016 11:00a Main Office Irwin Mcfadden III, ECCLESIASTICAL WORKER-C 97496 D48.5 Office Visit 01/09/2016 9:30a Main Office Lina Cerna, ECCLESIASTICAL WORKER-C 45738 H00.014 R23.8 Office Visit 08/08/2015 10:00a [place] [address] J01.90 Office Visit 07/03/2015 2:15p Main Office Irwin Mcfadden III, ECCLESIASTICAL WORKER-C 74699 F41.9 G37.9 Office Visit 06/05/2015 4:30p Main Office Irwin Mcfadden III, ECCLESIASTICAL WORKER-C 57208 M54.12 Office Visit 04/24/2015 1:30p Main Office Irwin Mcfadden III, ECCLESIASTICAL WORKER-C 27719 Z00.00 R53.82 M24.812 Z23 Plan of Care Future Appointment(s):12/08/2017 9:00 am - Irwin Mcfadden III, ECCLESIASTICAL WORKER-C at [facility]11/24/2017 - Irwin Mcfadden III, MATTHEW-CM54.5 Low back painComments:We had a long and daija discussion of her pain. she is worried that her pain is causing her to be disabled. I advised her that I believe we are still dealing with sub-acute pain and I will continue working with her towards improvement. If at some point we feel that her pain becomes chronic and improvement outlook is minimal, I will refer her to pain management for continued medications.B02.23 Postherpetic polyneuropathyNew Medication:Lyrica 25 mgComments:Will start Lyrica for PHN. She has tried Gabapentin in the past, but reports a very poor reaction to it. Discussed dosing and potential side effects. We will start at very low dosing and increase aswe are unable. She will f/u in 2 weeks, sooner with concerns.
[2017-12-13] MEDS ORDERED: Ondansetron ODT TAB* 4 MG PO ONE (00:29)
[2017-12-13] MEDS ORDERED: NS 0.9% 1000 ML* 1,000 ML IV ONE (00:29)
[2017-12-13] MEDS ORDERED: Ketorolac INJ* 30 MG/ML 1 ML VIAL IV ONE (00:39)
[2017-12-13] MEDS ORDERED: diPHENhydraMINE IV* 50 MG/ML 1 ml VIAL (BENADRYL) IV ONE (00:39)
[2017-12-13] MEDS ORDERED: Metoclopramide IV* 5 MG/ML 2 ML VIAL IV ONE (00:39)
[2017-12-13 00:47] LABS: ABS Basophils 0.1 10^3/ul (0-0.2); ABS Eosinophils 0.2 10^3/ul (0-0.6); ABS Monocytes 0.7 10^3/ul (0-0.8); ABS Neutrophils 3.9 10^3/ul (1.5-7.7); ABS Nucleated RBC 0 10^3/ul; Eosinophil % 3.1 % (0-6); Hematocrit 37 % (35-47); Hemoglobin 12.9 g/dl (12.0-16.0); Lymphocyte % 28.5 % (25-47); Mean Corpuscular HGB Conc 35 g/dl (31-36); Mean Corpuscular Hemoglobin 32 pg (27-31); Mean Corpuscular Volume 93 fL (80-97); Mean Platelet Volume 6.7 um3 (7.4-10.4); Nucleated Red Blood Cells % 0; Platelet Count 277 10^3/ul (150-450); Red Blood Count 3.97 10^6/ul (4.0-5.4); Red Cell Distribution Width 12 % (10.5-15)
[2017-12-13 01:05] LABS: EGFR Non-African American 93.2 (>60)
--- NOTE | 2017-12-13 01:36 | ED ---
Headache - HPI Summary HPI Summary: Patient complains of occipital headache, light sensitivity, N/V 4 with subsequent dry heaving, bilateral lower extremity weakness where she couldn't stand up starting today. History of MS. Denies trauma, fever, eye pain, vision loss, tingling in extremities, focal deficits, cough, sore throat, CP, SOB, abdomen pain, change in urinary BM. States she used to have migraines, but has not had one in years and this is the second headache in about a month. Patient was seen here for first headache. Patient states persistent N/V and lower extremity weakness are not usual for her MS flareups. But states she did have usual "MS hug" for about 30 minutes which is a contraction of the intercostal muscles and muscles of the anterior neck. Patient medical history is MS, secondary and renal insufficiency and is steroid dependent. - History Of Current Complaint Chief Complaint: EDHeadache Stated Complaint: GENERAL ILLNESS Time Seen by Provider: 12/13/17 00:08 Hx Last Menstrual Period: 06/16/17 Onset/Duration: Gradual Onset, Started hours ago Currently Pain Is: Moderate Timing: Constant Character: Dull, Pressure Location of Headache: Occipital - Allergies/Home Medications Allergies/Adverse Reactions: Allergies Allergy/AdvReac Type Severity Reaction Status Date / Time No Known Allergies Allergy Verified 12/12/17 22:14 PMH/Surg Hx/FS Hx/Imm Hx Endocrine/Hematology History: Denies: Hx Diabetes Cardiovascular History: Denies: Hx Congestive Heart Failure, Hx Hypertension, Hx Pacemaker/ICD History: Reports: Other Problems/Disorders - Secondary adrenal insufficiency Denies: Hx Dialysis, Hx Renal Disease Musculoskeletal History: Reports: Other Musculoskeletal History - MS Sensory History: Denies: Hx Hearing Aid Neurological History: Reports: Other Neuro Impairments/Disorders - Multiple Sclerosis, MS flare in mid- July, PAIN CLINIC PT Psychiatric History: Denies: Hx Panic Disorder - Surgical History Surgery Procedure, Year, and Place: TUBAL LIGATION - Immunization History Date of Tetanus Vaccine: Unk Date of Influenza Vaccine: Fall 2012 Immunizations Up to Date: Yes Infectious Disease History: No Infectious Disease History: Reports: Hx of Known/Suspected MRSA, Hx Shingles - June 2017 Denies: Traveled Outside the [place] in Last 30 Days - Family History Known Family History: Negative: Cardiac Disease, Hypertension, Diabetes - Social History Alcohol Use: None Hx Substance Use: No Substance Use Type: Reports: None Substance Use Comment - Amount & Last Used: medical marijuana d/t MS Hx Tobacco Use: No Smoking Status (MU): Former Smoker Have You Smoked in the Last Year: No Review of Systems Constitutional: Negative Positive: Photophobia ENT: Negative Cardiovascular: Negative Respiratory: Negative Positive: Vomiting, Nausea Genitourinary: Negative Musculoskeletal: Negative Skin: Negative Positive: Headache, Weakness Psychological: Normal All Other Systems Reviewed And Are Negative: Yes Physical Exam - Summary Physical Exam Summary: Neuro exam normal except patient appears to be able to lift her legs only inches off the bed. Able to move her toes and ankles, has positive sensation and pulses. Upper extremity strength and food porter normal. Lung sounds clear to auscultation bilaterally. Abdomen soft nontender. Cardiac exam unremarkable. Patient claims possible neck stiffness. Negative Brudzinski. Inconclusive Kernig's, Patient states neck mildly aggravated with leg extension with hips flexed at 90, but neck pain was worse when leg was released and laid down onto the bed. Triage Information Reviewed: Yes Vital Signs On Initial Exam: Initial Vitals Temp Pulse Resp BP Pulse Ox 97.3 F 71 15 110/88 99 12/12/17 22:10 12/12/17 22:10 12/12/17 22:10 12/12/17 22:10 12/12/17 22:10 Vital Signs Reviewed: Yes Appearance: Positive: Well-Appearing Skin: Positive: Warm Head/Face: Positive: Normal Head/Face Inspection Eyes: Positive: Normal Neck: Positive: Supple Respiratory/Lung Sounds: Positive: Clear to Auscultation Cardiovascular: Positive: Normal Abdomen Description: Positive: Nontender Musculoskeletal: Positive: Other Neurological: Positive: Other Psychiatric: Positive: Normal AVPU Assessment: Alert - Ostrander Coma Scale Best Eye Response: 4 - Spontaneous Best Motor Response: 6 - Obeys Commands Best Verbal Response: 5 - Oriented Coma Scale Total: 15 Diagnostics - Vital Signs Vital Signs Temp Pulse Resp BP Pulse Ox 12/13/17 01:08 82 115/75 98 12/13/17 01:00 73 96 12/13/17 00:08 65 110/71 100 12/13/17 00:00 68 98 12/12/17 23:58 79 93 12/12/17 23:40 58 100 12/12/17 23:38 60 124/76 100 12/12/17 22:10 97.3 F 71 15 110/88 99 - Laboratory Lab Results: Lab Results 12/13/17 12/13/17 12/13/17 Range/Units 00:40 00:40 00:40 WBC 7.0 (3.5-10.8) 10^3/ul RBC 3.97 L (4.0-5.4) 10^6/ul Hgb 12.9 (12.0-16.0) g/dl Hct 37 (35-47) % MCV 93 (80-97) fL MCH 32 H (27-31) pg MCHC 35 (31-36) g/dl RDW 12 (10.5-15) % Plt Count 277 (150-450) 10^3/ul MPV 6.7 L (7.4-10.4) um3 Neut % (Auto) 56.2 (38-83) % Lymph % (Auto) 28.5 (25-47) % Eagle % (Auto) 10.7 H (0-7) % Eos % (Auto) 3.1 (0-6) % Baso % (Auto) 1.5 (0-2) % Absolute Neuts (auto) 3.9 (1.5-7.7) 10^3/ul Absolute Lymphs (auto) 2.0 (1.0-4.8) 10^3/ul Absolute Monos (auto) 0.7 (0-0.8) 10^3/ul Absolute Eos (auto) 0.2 (0-0.6) 10^3/ul Absolute Basos (auto) 0.1 (0-0.2) 10^3/ul Absolute Nucleated RBC 0 10^3/ul Nucleated RBC % 0 Sodium 138 L (139-145) mmol/L Potassium 4.0 (3.5-5.0) mmol/L Chloride 104 (101-111) mmol/L Carbon Dioxide 27 (22-32) mmol/L Anion Gap 7 (2-11) mmol/L BUN 9 (6-24) mg/dL Creatinine 0.70 (0.51-0.95) mg/dL Est GFR ( Amer) 119.8 (>60) Est GFR (Non-Af Amer) 93.2 (>60) BUN/Creatinine Ratio 12.9 (8-20) Glucose 91 (70-100) mg/dL Lactic Acid 0.8 (0.5-2.0) mmol/L Calcium 8.7 (8.6-10.3) mg/dL Total Bilirubin 0.30 (0.2-1.0) mg/dL AST 16 (13-39) U/L ALT 15 (7-52) U/L Alkaline Phosphatase 33 L (34-104) U/L C-Reactive Protein 1.05 (< 5.00) mg/L Total Protein 6.4 (6.4-8.9) g/dL Albumin 4.2 (3.2-5.2) g/dL Globulin 2.2 (2-4) g/dL Albumin/Globulin Ratio 1.9 (1-3) Beta HCG, Quant < 0.60 mIU/mL Result Diagrams: 12/13/17 00:40 12/13/17 00:40 Lab Statement: Any lab studies that have been ordered have been reviewed, and results considered in the medical decision making process. Re-Evaluation - Re-Evaluation 1 Re-Evaluation Time: 01:41 Comment: Patient sleeping when provider entered for reevaluation. When woken up states nausea and headache are much improved, lower extremity weakness seems to be persistent. Patient still only able to lift her bilateral legs up a few inches off the bed. Sensation and function in feet remains intact. 2 Re-Evaluation Time: 02:33 Comment: Patient observed walking to the bathroom on her own to give us a urine sample. Walks to and from bathroom without issue. Headache Course/Dx - Course Course Of Treatment: Patient complains of occipital headache, light sensitivity , N/V 4 with subsequent dry heaving, bilateral lower extremity weakness where she couldn't stand up starting today. History of MS. Denies trauma, fever, eye pain, vision loss, tingling in extremities, focal deficits, cough, sore throat, CP, SOB, abdomen pain, change in urinary BM. States she used to have migraines, but has not had one in years and this is the second headache in about a month. Patient was seen here for first headache. Patient states persistent N/V and lower extremity weakness are not usual for her MS flareups. But states she did have usual "MS hug" for about 30 minutes which is a contraction of the intercostal muscles and muscles of the anterior neck. Patient medical history is MS, secondary and renal insufficiency and is steroid dependent. Neuro exam normal except patient appears to be able to lift her legs only inches off the bed. Able to move her toes and ankles, has positive sensation and pulses. Upper extremity strength and food porter normal. Lung sounds clear to auscultation bilaterally. Abdomen soft nontender. Cardiac exam unremarkable. Patient claims possible neck stiffness. Negative Brudzinski. Inconclusive Kernig's, Patient states neck mildly aggravated with leg extension with hips flexed at 90, but neck pain was worse when leg was released and laid down onto the bed. Vital signs within normal limits. Labs unremarkable. Patient headache and nausea improved with medication. Patient observed walking to the bathroom and back to exam room without issue indicating lower extremity weakness has resolved. Patient states she feels better and is ready to go home. Follow-up with primary care. - Diagnoses Provider Diagnoses: Bilateral leg weakness, Migraine, Nausea & vomiting Discharge - Sign-Out/Discharge Documenting (check all that apply): Discharge/Admit/Transfer - Discharge Plan Condition: Good Disposition: HOME Patient Education Materials: Migraine Headache (ED), Weakness (ED) Referrals: Irwin Mcfadden III IMPORT EXPORT MANAGER [Primary Care Provider] - Additional Instructions: Follow-up with primary care. Return to the ED for any new or worsening symptoms - Billing Disposition and Condition Condition: GOOD Disposition: HOME
[2017-12-13 02:37] LABS: Urine Appearance Clear; Urine Blood Negative (Negative); Urine Color Yellow; Urine Ketones Negative (Negative); Urine Protein Negative (Negative); Urine Specific Gravity 1.008 (1.010-1.030); Urine Urobilinogen Negative (Negative)
[2017-12-13 02:54] VITALS: BP 101/76
== END 2017-12-13 02:53 | disposition home or self-care (01) ==
LOC: ED 22:01
DX: H53.149 Visual discomfort, unspecified (principal); R11.2 Nausea with vomiting, unspecified; Z87.891 Personal history of nicotine dependence; R53.1 Weakness; G43.909 Migraine, unspecified, not intractable, without status migrainosus
CPT/HCPCS: 36415; 80053; 81003; 83605; 84702; 85025; 86140; 96374; 96375; 99283; A9270-GY; J1200; J1885; J2765

== ENCOUNTER 2021-08-14 21:12 | Inpatient (IN) ==
[2021-08-14 22:25] LABS: ABS Eosinophils 0.2 10^3/ul (0-0.6); ABS Lymphocytes 1.4 10^3/ul (1.0-4.8); ABS Monocytes 0.8 10^3/ul (0-0.8); ABS Neutrophils 3.3 10^3/ul (1.5-7.7); Eosinophil % 3.7 %; Hematocrit 34 % (35-47); Hemoglobin 12.1 g/dL (12.0-16.0); Lymphocyte % 23.8 %; Mean Corpuscular HGB Conc 36 g/dL (31-36); Mean Corpuscular Hemoglobin 37 pg (27-31); Mean Corpuscular Volume 105 fL (80-97); Mean Platelet Volume 6.5 fL (7.4-10.4); Nucleated Red Blood Cells % 0.1; Platelet Count 449 10^3/uL (150-450); Red Blood Count 3.26 10^6 /uL (3.70-4.87); Red Cell Distribution Width 17 % (10-15); White Blood Count 5.7 10^3/uL (3.5-10.8)
[2021-08-14 22:35] LABS: Activated Partial Thrombo Time 31.6 seconds (26.0-38.0); INR 1.01 (0.86-1.15)
[2021-08-14 22:44] LABS: Alcohol, S < 13 mg/dL (<13)
[2021-08-14 23:00] LABS: ALT 18 U/L (7-52); AST 21 U/L (13-39); Albumin/Globulin Ratio 1.5 (1-3); Alkaline Phosphatase 60 U/L (35-149); Anion Gap 7 mmol/L (2-11); Blood Urea Nitrogen 15 mg/dL (6-24); CO2 Carbon Dioxide 26 mmol/L (22-32); Calcium 9.5 mg/dL (8.6-10.3); Chloride 108 mmol/L (101-111); Globulin 2.6 g/dL (2-4); Glucose 94 mg/dL (70-100); Potassium 3.7 mmol/L (3.5-5.0); Sodium 141 mmol/L (135-145); Total Protein 6.6 g/dL (6.4-8.9); eGFR CKD-EPI 113.2 (>60)
[2021-08-14 23:07] LABS: HCG Pregnancy 0.86 mIU/mL
[2021-08-15 00:47] LABS: Urine Appearance Turbid; Urine Bilirubin Negative (Negative); Urine Blood 2+ (Negative); Urine Color Yellow; Urine Glucose Negative (Negative); Urine Ketones Negative (Negative); Urine Nitrite Negative (Negative); Urine Protein Negative (Negative); Urine Specific Gravity 1.014 (1.002-1.030); Urine Urobilinogen Negative (Negative)
[2021-08-15 01:17] LABS: Urine Amorphous Crystals Present (Absent); Urine Bacteria Absent (Absent); Urine Red Blood Cell 3+(>10/hpf) (Absent); Urine Squamous Epithelial Cell Present (Absent); Urine White Blood Cell Absent (Absent); Urine Yeast Present (Absent)
[2021-08-15 01:38] LABS: Urine Benzodiazepine Screen Presumptive Positive (None Detect); Urine Cannabinoids Screen Presumptive Positive (None Detect); Urine Opiates Screen None Detected (None Detect)
[2021-08-15 02:42] LABS: C Reactive Protein 1.69 mg/L (<8.01)
[2021-08-15] MEDS: HYDROcodone/ACETAMIN 5/325 mg TAB PO PRN ×2 (02:56→19:29)
[2021-08-15 03:23] LABS: Influenza A Molecular Negative (Negative); Influenza B Molecular Negative (Negative); Rapid COVID-19 Molecular Undetected (Undetected)
[2021-08-15 03:51] LABS: Erythrocyte Sed Rate 27 mm/Hr (0-19)
[2021-08-15 03:53] LABS: TSH Ultra Thyroid Stim Horm 0.87 mcIU/mL (0.34-5.60)
[2021-08-15 04:04] LABS: Vitamin B12 144 pg/mL (180-914)
[2021-08-15] MEDS ORDERED: Cyanocobalamin INJ 1,000 MCG/ML VIAL 1 ML VIAL IM ONE (04:14)
[2021-08-15] MEDS ORDERED: Amphetamine/Dextroam ER 10(NF) 10 mg CAP.ER PO SCH (06:00)
[2021-08-15] MEDS: Polyethylene Glycol 3350 17 GM PACKET PO SCH (07:41)
[2021-08-15] MEDS: Lidocaine PATCH 5% PATCH TRANSDERM SCH (07:46)
[2021-08-15] MEDS ORDERED: Enoxaparin 40 MG/0.4 ML SYR SUBCUT SCH (09:00)
[2021-08-15 10:14] LABS: Vitamin D Total 25(OH) 24.2 ng/mL (20-50)
[2021-08-15] MEDS ORDERED: Immune Globulin IV Order (CPOE ENTRY PROTOCOL) IV SCH (11:00)
[2021-08-15 12:38] LABS: Rheumatoid Factor < 10 IU/mL (<15)
[2021-08-15] MEDS ORDERED: diPHENhydraMINE 25 mg TAB PO SCH (12:45)
[2021-08-15] MEDS ORDERED: [UNRECOGNIZED DRUG - OTHER] IV SCH (13:00)
[2021-08-15] MEDS ORDERED: PRIVIGEN IV SCH (13:00)
[2021-08-15] MEDS ORDERED: IMMUNE GLOB IV SCH (13:00)
[2021-08-15 13:13] LABS: HIV 4th Generation Nonreactive (Nonreactive)
[2021-08-15] MEDS: Amphetamine/Dextroam ER 10(NF) 10 mg CAP.ER PO SCH (14:53)
[2021-08-15] MEDS ORDERED: Gadoteridol (CONTRAST) 279.3 MG/ML 10 ML IV ONE (15:22)
[2021-08-15] MEDS ORDERED: diPHENhydraMINE IV 50 MG/ML 1 ml VIAL (BENADRYL) IV ONE (17:01)
[2021-08-15] MEDS ORDERED: Ondansetron 4 mg VIAL 2 MG/ML 2 ml VIAL IV PRN (17:02)
[2021-08-15] MEDS ORDERED: methylPREDNISolone SOD 40 mg/ml 1 ml VIAL IV PRN (17:38)
[2021-08-15] MEDS ORDERED: methylPREDNISolone SOD 40 mg/ml 1 ml VIAL IV SCH (18:00)
[2021-08-15] MEDS: Senna TAB 8.6 mg TAB PO PRN (19:30)
[2021-08-15] MEDS: Lidocaine Patch REMOVE NOTE PATCH OFF SCH (20:46)
[2021-08-16] MEDS: Amphetamine/Dextroam ER 10(NF) 10 mg CAP.ER PO SCH ×2 (06:19→12:25)
[2021-08-16] MEDS: Polyethylene Glycol 3350 17 GM PACKET PO SCH (07:17)
[2021-08-16] MEDS: Lidocaine PATCH 5% PATCH TRANSDERM SCH (07:24)
[2021-08-16] MEDS: HYDROcodone/ACETAMIN 5/325 mg TAB PO PRN ×2 (07:49→21:17)
[2021-08-16] MEDS ORDERED: methylPREDNISolone SOD SUCC 1000 MG ML VIAL IVPB SCH (09:00)
[2021-08-16] MEDS: GLATIRAMER 40 MG/ML SUBCUT SCH (09:00)
[2021-08-16] MEDS: Cyanocobalamin INJ 1,000 MCG/ML VIAL 1 ML VIAL IM SCH (09:50)
[2021-08-16 10:06] LABS: Folate 19.84 ng/mL (5.90-24.80)
[2021-08-16] MEDS: methylPREDNISolone SOD SUCC 1,000 MG in NS 0.9% 250 ml 250 ML IVPB SCH (11:00)
[2021-08-16] MEDS: diPHENhydraMINE 25 mg TAB PO SCH (12:45)
[2021-08-16] MEDS: Lidocaine Patch REMOVE NOTE PATCH OFF SCH (16:40)
[2021-08-16 16:44] LABS: Body Fluid Source Cerebral Spinal
[2021-08-16 16:47] LABS: Body Fluid Appearance Clear; Body Fluid Color Colorless; CSF Tube # 4
[2021-08-16 16:58] LABS: CSF Glucose 71 mg/dL (40-70)
[2021-08-16 17:13] LABS: Body Fluid WBC 2 /mcL
[2021-08-16 17:15] LABS: Body Fluid Mono 10 %; Body Fluid Total Cells Counted 20
[2021-08-16] MEDS: Senna TAB 8.6 mg TAB PO PRN (20:09)
[2021-08-17] MEDS: Amphetamine/Dextroam ER 10(NF) 10 mg CAP.ER PO SCH ×2 (06:29→12:37)
[2021-08-17] MEDS: Cyanocobalamin INJ 1,000 MCG/ML VIAL 1 ML VIAL IM SCH (08:12)
[2021-08-17] MEDS: Lidocaine PATCH 5% PATCH TRANSDERM SCH (08:12)
[2021-08-17] MEDS: Polyethylene Glycol 3350 17 GM PACKET PO SCH (08:13)
[2021-08-17] MEDS: Senna TAB 8.6 mg TAB PO PRN (08:25)
[2021-08-17] MEDS: HYDROcodone/ACETAMIN 5/325 mg TAB PO PRN ×2 (08:25→18:30)
[2021-08-17] MEDS: methylPREDNISolone SOD SUCC 1,000 MG in NS 0.9% 250 ml 250 ML IVPB SCH (08:25)
[2021-08-17] MEDS ORDERED: NS 0.9% 1000 ml BAG 1,000 ML IV SCH (08:30)
[2021-08-17] MEDS: diPHENhydraMINE 25 mg TAB PO SCH (12:38)
[2021-08-17] MEDS: Amphetamine MIXED SALT 10mgTAB PO PRN (16:17)
[2021-08-17] MEDS: Enoxaparin 40 MG/0.4 ML SYR SUBCUT SCH (21:14)
[2021-08-17] MEDS: Lidocaine Patch REMOVE NOTE PATCH OFF SCH (22:22)
[2021-08-18] MEDS: Polyethylene Glycol 3350 17 GM PACKET PO SCH (07:19)
[2021-08-18] MEDS: Senna TAB 8.6 mg TAB PO PRN (07:19)
[2021-08-18] MEDS: Amphetamine/Dextroam ER 10(NF) 10 mg CAP.ER PO SCH ×2 (07:19→11:59)
[2021-08-18] MEDS: Amphetamine MIXED SALT 10mgTAB PO PRN (07:20)
[2021-08-18] MEDS: HYDROcodone/ACETAMIN 5/325 mg TAB PO PRN ×2 (07:21→17:54)
[2021-08-18] MEDS ORDERED: Senna TAB 8.6 mg TAB PO PRN (08:33)
[2021-08-18] MEDS: Lidocaine PATCH 5% PATCH TRANSDERM SCH (09:16)
[2021-08-18] MEDS: Cyanocobalamin INJ 1,000 MCG/ML VIAL 1 ML VIAL IM SCH (09:17)
[2021-08-18] MEDS: methylPREDNISolone SOD SUCC 1,000 MG in NS 0.9% 250 ml 250 ML IVPB SCH (09:29)
[2021-08-18] MEDS: diPHENhydraMINE 25 mg TAB PO SCH (11:56)
[2021-08-18] MEDS: Enoxaparin 40 MG/0.4 ML SYR SUBCUT SCH (17:48)
[2021-08-18] MEDS: Lidocaine Patch REMOVE NOTE PATCH OFF SCH (20:48)
[2021-08-19] MEDS: Amphetamine/Dextroam ER 10(NF) 10 mg CAP.ER PO SCH ×2 (05:33→11:23)
[2021-08-19] MEDS: Polyethylene Glycol 3350 17 GM PACKET PO SCH (07:28)
[2021-08-19] MEDS: Cyanocobalamin INJ 1,000 MCG/ML VIAL 1 ML VIAL IM SCH (07:30)
[2021-08-19] MEDS: Lidocaine PATCH 5% PATCH TRANSDERM SCH (07:31)
[2021-08-19 08:41] VITALS: BP 120/73
[2021-08-19 09:36] LABS: Intrinsic Factor Blocking AB Positive (Negative)
[2021-08-19] MEDS: GLATIRAMER 40 MG/ML SUBCUT SCH (11:08)
[2021-08-19] MEDS: diPHENhydraMINE 25 mg TAB PO SCH (11:12)
[2021-08-19 13:46] LABS: Copper Level 1.31 mcg/mL (0.75-1.45); Zinc 0.72 mcg/mL (0.66-1.10)
[2021-08-19 13:49] LABS: SS-A/Ro Antibody <0.2 U; SS-B/La Antibody <0.2 U
[2021-08-19 13:56] LABS: Chlamydia trachomatis NAA Negative (Negative); Neisseria gonorrhoeae (GC) NAA Negative (Negative)
[2021-08-19 16:08] LABS: CSF VDRL Negative (Negative)
[2021-08-19 16:19] LABS: HSV 1 PCR, CSF Negative (Negative); HSV 2 PCR, CSF Negative (Negative)
[2021-08-19 17:07] LABS: Albumin, CSF 14.1 mg/dL (<=27.0); Albumin, S 3900 mg/dL; IgG Index, CSF 0.68 (<=0.85); IgG, CSF 1.9 mg/dL (<=8.1); IgG, S 739 mg/dL (767 - 1590); IgG/Albumin, CSF 0.13 (<=0.21); IgG/Albumin, S 0.19 (<=0.40); Synthesis Rate, CSF 2.32 mg/24 h (<=12)
[2021-08-19 22:09] LABS: B. garinii/B. afzellii PCR Negative (Negative); Lyme Disease Source CSF
[2021-08-21 21:45] LABS: CSF Angiotension Conv Enz 0.7 U/L (0.0-2.5)
[2021-08-22 10:17] LABS: NMO/AQP4 IgG Negative (Negative)
[2021-08-22 15:47] LABS: Methylmalonic Acid 2.18 nmol/mL (<=0.40)
== END 2021-08-19 13:28 | DRG 663 ==
LOC: EDHOLD 21:12 → ED 21:12 → SUATTDRO 08-15 02:07 → MEDTELE 08-15 04:50 → PMRU 08-19 13:25
PROVIDERS: ADMIT Internal Medicine; ATTEND Hospitalist

== ENCOUNTER 2021-08-19 10:01 | Inpatient (IN) ==
[2021-08-19] MEDS ORDERED: Amphetamine MIXED SALT 10mgTAB PO ONE (14:00)
[2021-08-19] MEDS ORDERED: Magnesium Hydroxide LIQ 30 ML UDC PO PRN (15:41)
[2021-08-19] MEDS ORDERED: Glatiramer(NF) 20 MG/ML 1 ML SYRINGE SUBCUT SCH (17:00)
[2021-08-19] MEDS: Enoxaparin 40 MG/0.4 ML SYR SUBCUT SCH (18:48)
[2021-08-20] MEDS: CMCS: Amphetamine/Dextroam ER 10(NF) 10 mg CAP.ER PO SCH ×2 (04:26→12:08)
[2021-08-20] MEDS ORDERED: HYDROcodone/ACETAMIN 5/325 mg TAB PO ONE (05:45)
[2021-08-20] MEDS ORDERED: Cholecalciferol (VIT D3) 1,000 unit TAB PO SCH (09:00)
[2021-08-20] MEDS: HYDROcodone/ACETAMIN 5/325 mg TAB PO PRN ×2 (11:33→20:01)
[2021-08-20] MEDS: Enoxaparin 40 MG/0.4 ML SYR SUBCUT SCH (17:42)
[2021-08-20] MEDS ORDERED: Glycerin ADULT 2.4 gm SUPP PR PRN (18:22)
[2021-08-20] MEDS: Senna TAB 8.6 mg TAB PO PRN (20:00)
[2021-08-20] MEDS: Lidocaine PATCH 5% PATCH TRANSDERM SCH (20:01)
[2021-08-21] MEDS: HYDROcodone/ACETAMIN 5/325 mg TAB PO PRN ×2 (06:09→12:50)
[2021-08-21] MEDS: CMCS: Amphetamine/Dextroam ER 10(NF) 10 mg CAP.ER PO SCH ×2 (06:09→12:46)
[2021-08-21 06:50] LABS: Hematocrit 37 % (35-47); Hemoglobin 12.9 g/dL (12.0-16.0); Mean Corpuscular HGB Conc 35 g/dL (31-36); Mean Corpuscular Hemoglobin 37 pg (27-31); Mean Corpuscular Volume 105 fL (80-97); Platelet Count 375 10^3/uL (150-450); Red Blood Count 3.49 10^6 /uL (3.70-4.87); Red Cell Distribution Width 16 % (10-15); White Blood Count 9.2 10^3/uL (3.5-10.8)
[2021-08-21 07:12] LABS: Potassium 4.4 mmol/L (3.5-5.0)
[2021-08-21 07:37] LABS: Albumin 3.5 g/dL (3.2-5.2); Albumin/Globulin Ratio 1.3 (1-3); Calcium 8.9 mg/dL (8.6-10.3); Globulin 2.7 g/dL (2-4); Total Bilirubin 0.3 mg/dL (0.2-1.0); Total Protein 6.2 g/dL (6.4-8.9); eGFR CKD-EPI 112.8 (>60)
[2021-08-21 08:25] LABS: ABS Eosinophils 0.3 10^3/ul (0-0.6); ABS Lymphocytes 3.1 10^3/ul (1.0-4.8); ABS Monocytes 0.8 10^3/ul (0-0.8); ABS Neutrophils 4.9 10^3/ul (1.5-7.7); Eosinophil % 3.7 %
[2021-08-21] MEDS: Cholecalciferol (VIT D3) 1,000 unit TAB PO SCH (08:43)
[2021-08-21] MEDS: Polyethylene Glycol 3350 17 GM PACKET PO SCH (08:47)
[2021-08-21] MEDS: Lidocaine Patch REMOVE NOTE PATCH OFF SCH (08:51)
[2021-08-21] MEDS: PTO: Glatiramer(NF) 20 MG/ML 1 ML SYRINGE SUBCUT SCH (10:34)
[2021-08-21] MEDS: Amphetamine MIXED SALT 10mgTAB PO PRN (14:30)
[2021-08-21] MEDS: Enoxaparin 40 MG/0.4 ML SYR SUBCUT SCH (17:57)
[2021-08-21] MEDS: Lidocaine PATCH 5% PATCH TRANSDERM SCH (20:10)
[2021-08-21] MEDS: Senna TAB 8.6 mg TAB PO PRN (20:13)
[2021-08-22] MEDS: HYDROcodone/ACETAMIN 5/325 mg TAB PO PRN ×2 (01:14→18:39)
[2021-08-22] MEDS: CMCS: Amphetamine/Dextroam ER 10(NF) 10 mg CAP.ER PO SCH ×2 (06:23→13:09)
[2021-08-22] MEDS: Cholecalciferol (VIT D3) 1,000 unit TAB PO SCH (09:36)
[2021-08-22] MEDS: Lidocaine Patch REMOVE NOTE PATCH OFF SCH (09:37)
[2021-08-22] MEDS: Polyethylene Glycol 3350 17 GM PACKET PO SCH (09:43)
[2021-08-22] MEDS: Enoxaparin 40 MG/0.4 ML SYR SUBCUT SCH (17:55)
[2021-08-22] MEDS: Lidocaine PATCH 5% PATCH TRANSDERM SCH (20:19)
[2021-08-22] MEDS: Senna TAB 8.6 mg TAB PO PRN (20:33)
[2021-08-23] MEDS: CMCS: Amphetamine/Dextroam ER 10(NF) 10 mg CAP.ER PO SCH ×2 (06:17→12:10)
[2021-08-23] MEDS: Polyethylene Glycol 3350 17 GM PACKET PO SCH (08:12)
[2021-08-23] MEDS: Cholecalciferol (VIT D3) 1,000 unit TAB PO SCH (08:12)
[2021-08-23] MEDS: Lidocaine Patch REMOVE NOTE PATCH OFF SCH (10:55)
[2021-08-23] MEDS: PTO: Glatiramer(NF) 20 MG/ML 1 ML SYRINGE SUBCUT SCH (11:08)
[2021-08-23] MEDS: Amphetamine MIXED SALT 10mgTAB PO PRN (15:10)
[2021-08-23] MEDS: Enoxaparin 40 MG/0.4 ML SYR SUBCUT SCH (19:14)
[2021-08-23] MEDS: Lidocaine PATCH 5% PATCH TRANSDERM SCH (20:36)
[2021-08-23] MEDS: HYDROcodone/ACETAMIN 5/325 mg TAB PO PRN (21:37)
[2021-08-24] MEDS: HYDROcodone/ACETAMIN 5/325 mg TAB PO PRN ×2 (05:11→21:19)
[2021-08-24] MEDS: CMCS: Amphetamine/Dextroam ER 10(NF) 10 mg CAP.ER PO SCH ×2 (06:18→12:29)
[2021-08-24] MEDS: Lidocaine Patch REMOVE NOTE PATCH OFF SCH (06:52)
[2021-08-24] MEDS: Polyethylene Glycol 3350 17 GM PACKET PO SCH (08:32)
[2021-08-24] MEDS: Cholecalciferol (VIT D3) 1,000 unit TAB PO SCH (08:32)
[2021-08-24] MEDS: Amphetamine MIXED SALT 10mgTAB PO PRN (14:49)
[2021-08-24] MEDS: Enoxaparin 40 MG/0.4 ML SYR SUBCUT SCH (18:02)
[2021-08-24] MEDS: Lidocaine PATCH 5% PATCH TRANSDERM SCH (19:56)
[2021-08-25] MEDS: CMCS: Amphetamine/Dextroam ER 10(NF) 10 mg CAP.ER PO SCH ×2 (06:06→12:21)
[2021-08-25] MEDS: HYDROcodone/ACETAMIN 5/325 mg TAB PO PRN ×2 (07:29→18:01)
[2021-08-25] MEDS: Lidocaine Patch REMOVE NOTE PATCH OFF SCH (07:50)
[2021-08-25] MEDS: Cholecalciferol (VIT D3) 1,000 unit TAB PO SCH (10:03)
[2021-08-25] MEDS: Polyethylene Glycol 3350 17 GM PACKET PO SCH (10:04)
[2021-08-25] MEDS: Enoxaparin 40 MG/0.4 ML SYR SUBCUT SCH (18:01)
[2021-08-25] MEDS: Lidocaine PATCH 5% PATCH TRANSDERM SCH (19:46)
[2021-08-26] MEDS: HYDROcodone/ACETAMIN 5/325 mg TAB PO PRN ×2 (06:12→18:49)
[2021-08-26] MEDS: CMCS: Amphetamine/Dextroam ER 10(NF) 10 mg CAP.ER PO SCH ×2 (06:12→12:40)
[2021-08-26] MEDS: Lidocaine Patch REMOVE NOTE PATCH OFF SCH (10:46)
[2021-08-26] MEDS: Cholecalciferol (VIT D3) 1,000 unit TAB PO SCH (10:48)
[2021-08-26] MEDS: Polyethylene Glycol 3350 17 GM PACKET PO SCH (10:49)
[2021-08-26] MEDS: PTO: Glatiramer(NF) 20 MG/ML 1 ML SYRINGE SUBCUT SCH (10:56)
[2021-08-26] MEDS: Amphetamine MIXED SALT 10mgTAB PO PRN (15:04)
[2021-08-26] MEDS: Enoxaparin 40 MG/0.4 ML SYR SUBCUT SCH (18:50)
[2021-08-26] MEDS: Lidocaine PATCH 5% PATCH TRANSDERM SCH (21:47)
[2021-08-26] MEDS: Senna TAB 8.6 mg TAB PO PRN (21:47)
[2021-08-27] MEDS: HYDROcodone/ACETAMIN 5/325 mg TAB PO PRN (06:06)
[2021-08-27] MEDS: CMCS: Amphetamine/Dextroam ER 10(NF) 10 mg CAP.ER PO SCH ×2 (06:07→13:06)
[2021-08-27] MEDS ORDERED: Cyanocobalamin INJ 1,000 MCG/ML VIAL 1 ML VIAL IM ONE (09:00)
[2021-08-27] MEDS: Lidocaine Patch REMOVE NOTE PATCH OFF SCH (10:42)
[2021-08-27] MEDS: Cholecalciferol (VIT D3) 1,000 unit TAB PO SCH (10:42)
[2021-08-27] MEDS: Polyethylene Glycol 3350 17 GM PACKET PO SCH (10:44)
[2021-08-27] MEDS: Amphetamine MIXED SALT 10mgTAB PO PRN (14:28)
[2021-08-27] MEDS: Enoxaparin 40 MG/0.4 ML SYR SUBCUT SCH (18:41)
[2021-08-27] MEDS: Lidocaine PATCH 5% PATCH TRANSDERM SCH (21:34)
[2021-08-27] MEDS: Senna TAB 8.6 mg TAB PO PRN (21:35)
[2021-08-28] MEDS: HYDROcodone/ACETAMIN 5/325 mg TAB PO PRN ×2 (05:29→18:41)
[2021-08-28] MEDS: CMCS: Amphetamine/Dextroam ER 10(NF) 10 mg CAP.ER PO SCH ×2 (05:33→12:50)
[2021-08-28 06:57] LABS: ABS Basophils 0.1 10^3/ul (0-0.2); ABS Eosinophils 0.2 10^3/ul (0-0.6); ABS Lymphocytes 1.8 10^3/ul (1.0-4.8); ABS Monocytes 0.7 10^3/ul (0-0.8); ABS Neutrophils 5.2 10^3/ul (1.5-7.7); Eosinophil % 2.7 %; Hematocrit 36 % (35-47); Hemoglobin 12.1 g/dL (12.0-16.0); Lymphocyte % 22.6 %; Mean Corpuscular HGB Conc 34 g/dL (31-36); Mean Corpuscular Hemoglobin 36 pg (27-31); Mean Corpuscular Volume 105 fL (80-97); Platelet Count 422 10^3/uL (150-450); Red Blood Count 3.38 10^6 /uL (3.70-4.87); Red Cell Distribution Width 15 % (10-15); White Blood Count 8.1 10^3/uL (3.5-10.8)
[2021-08-28 07:12] LABS: ALT 45 U/L (7-52); AST 23 U/L (13-39); Albumin 3.7 g/dL (3.2-5.2); Albumin/Globulin Ratio 1.5 (1-3); Alkaline Phosphatase 61 U/L (35-149); Anion Gap 5 mmol/L (2-11); Blood Urea Nitrogen 20 mg/dL (6-24); CO2 Carbon Dioxide 25 mmol/L (22-32); Calcium 8.8 mg/dL (8.6-10.3); Chloride 106 mmol/L (101-111); Globulin 2.5 g/dL (2-4); Glucose 105 mg/dL (70-100); Potassium 3.9 mmol/L (3.5-5.0); Sodium 136 mmol/L (135-145); Total Protein 6.2 g/dL (6.4-8.9); eGFR CKD-EPI 115.1 (>60)
[2021-08-28 07:39] LABS: Vitamin B12 > 1450 pg/mL (180-914)
[2021-08-28] MEDS: Lidocaine Patch REMOVE NOTE PATCH OFF SCH (08:34)
[2021-08-28] MEDS: Cholecalciferol (VIT D3) 1,000 unit TAB PO SCH (08:35)
[2021-08-28] MEDS: Polyethylene Glycol 3350 17 GM PACKET PO SCH (08:36)
[2021-08-28] MEDS: PTO: Glatiramer(NF) 20 MG/ML 1 ML SYRINGE SUBCUT SCH (08:38)
[2021-08-28] MEDS: Amphetamine MIXED SALT 10mgTAB PO PRN (16:06)
[2021-08-28] MEDS: Enoxaparin 40 MG/0.4 ML SYR SUBCUT SCH (18:34)
[2021-08-28] MEDS: Lidocaine PATCH 5% PATCH TRANSDERM SCH (20:14)
[2021-08-29] MEDS: HYDROcodone/ACETAMIN 5/325 mg TAB PO PRN ×2 (06:02→19:10)
[2021-08-29] MEDS: CMCS: Amphetamine/Dextroam ER 10(NF) 10 mg CAP.ER PO SCH ×2 (06:02→12:07)
[2021-08-29] MEDS: Cholecalciferol (VIT D3) 1,000 unit TAB PO SCH (07:42)
[2021-08-29] MEDS: Polyethylene Glycol 3350 17 GM PACKET PO SCH (07:42)
[2021-08-29] MEDS: Lidocaine Patch REMOVE NOTE PATCH OFF SCH (09:04)
[2021-08-29] MEDS: Amphetamine MIXED SALT 10mgTAB PO PRN (15:02)
[2021-08-29] MEDS: Enoxaparin 40 MG/0.4 ML SYR SUBCUT SCH (19:06)
[2021-08-29] MEDS: Lidocaine PATCH 5% PATCH TRANSDERM SCH (21:01)
[2021-08-30] MEDS: HYDROcodone/ACETAMIN 5/325 mg TAB PO PRN ×2 (06:03→20:16)
[2021-08-30] MEDS: CMCS: Amphetamine/Dextroam ER 10(NF) 10 mg CAP.ER PO SCH ×2 (06:04→13:12)
[2021-08-30] MEDS: Cholecalciferol (VIT D3) 1,000 unit TAB PO SCH (09:34)
[2021-08-30] MEDS: Polyethylene Glycol 3350 17 GM PACKET PO SCH (09:36)
[2021-08-30] MEDS: Lidocaine Patch REMOVE NOTE PATCH OFF SCH (09:39)
[2021-08-30] MEDS: PTO: Glatiramer(NF) 20 MG/ML 1 ML SYRINGE SUBCUT SCH (11:00)
[2021-08-30] MEDS: Enoxaparin 40 MG/0.4 ML SYR SUBCUT SCH (18:25)
[2021-08-30] MEDS: Lidocaine PATCH 5% PATCH TRANSDERM SCH (20:14)
[2021-08-30] MEDS: Senna TAB 8.6 mg TAB PO PRN (20:15)
[2021-08-31] MEDS: CMCS: Amphetamine/Dextroam ER 10(NF) 10 mg CAP.ER PO SCH ×2 (06:15→13:12)
[2021-08-31] MEDS: HYDROcodone/ACETAMIN 5/325 mg TAB PO PRN ×2 (06:20→20:26)
[2021-08-31] MEDS: Lidocaine Patch REMOVE NOTE PATCH OFF SCH (09:17)
[2021-08-31] MEDS: Cholecalciferol (VIT D3) 1,000 unit TAB PO SCH (09:18)
[2021-08-31] MEDS: Polyethylene Glycol 3350 17 GM PACKET PO SCH (09:19)
[2021-08-31] MEDS: Enoxaparin 40 MG/0.4 ML SYR SUBCUT SCH (18:25)
[2021-08-31] MEDS: Lidocaine PATCH 5% PATCH TRANSDERM SCH (20:27)
[2021-08-31] MEDS: Senna TAB 8.6 mg TAB PO PRN (20:27)
[2021-09-01] MEDS: CMCS: Amphetamine/Dextroam ER 10(NF) 10 mg CAP.ER PO SCH ×2 (05:56→13:28)
[2021-09-01] MEDS: HYDROcodone/ACETAMIN 5/325 mg TAB PO PRN (05:56)
[2021-09-01] MEDS: Cholecalciferol (VIT D3) 1,000 unit TAB PO SCH (09:29)
[2021-09-01] MEDS: Lidocaine Patch REMOVE NOTE PATCH OFF SCH (09:30)
[2021-09-01] MEDS: Polyethylene Glycol 3350 17 GM PACKET PO SCH (09:31)
[2021-09-01] MEDS: Enoxaparin 40 MG/0.4 ML SYR SUBCUT SCH (19:38)
[2021-09-01] MEDS: Lidocaine PATCH 5% PATCH TRANSDERM SCH (20:59)
[2021-09-01] MEDS: Senna TAB 8.6 mg TAB PO PRN (21:07)
[2021-09-02] MEDS: HYDROcodone/ACETAMIN 5/325 mg TAB PO PRN ×2 (04:11→20:25)
[2021-09-02] MEDS: CMCS: Amphetamine/Dextroam ER 10(NF) 10 mg CAP.ER PO SCH ×2 (04:11→11:56)
[2021-09-02] MEDS: Polyethylene Glycol 3350 17 GM PACKET PO SCH (08:22)
[2021-09-02] MEDS: Cholecalciferol (VIT D3) 1,000 unit TAB PO SCH (08:22)
[2021-09-02] MEDS: Lidocaine Patch REMOVE NOTE PATCH OFF SCH (08:30)
[2021-09-02] MEDS: PTO: Glatiramer(NF) 20 MG/ML 1 ML SYRINGE SUBCUT SCH (10:07)
[2021-09-02] MEDS: Enoxaparin 40 MG/0.4 ML SYR SUBCUT SCH (17:32)
[2021-09-02] MEDS: Lidocaine PATCH 5% PATCH TRANSDERM SCH (20:22)
[2021-09-03] MEDS: CMCS: Amphetamine/Dextroam ER 10(NF) 10 mg CAP.ER PO SCH ×2 (05:34→12:04)
[2021-09-03 05:39] VITALS: BP 94/58
[2021-09-03] MEDS ORDERED: Cyanocobalamin INJ 1,000 MCG/ML VIAL 1 ML VIAL IM ONE (08:00)
[2021-09-03] MEDS: Polyethylene Glycol 3350 17 GM PACKET PO SCH (08:46)
[2021-09-03] MEDS: Cholecalciferol (VIT D3) 1,000 unit TAB PO SCH (08:46)
[2021-09-03] MEDS: Lidocaine Patch REMOVE NOTE PATCH OFF SCH (08:48)
== END 2021-09-03 15:30 | disposition home health service (06) | DRG 43 ==
LOC: PMRU 13:28
PROVIDERS: ADMIT Physical Medicine & Rehabilitation; ATTEND Physical Medicine & Rehabilitation

== ENCOUNTER 2021-09-12 12:10 | Observation (INO) ==
[2021-09-12 13:01] LABS: ABS Basophils 0.1 10^3/ul (0-0.2); ABS Eosinophils 0.3 10^3/ul (0-0.6); ABS Lymphocytes 1.5 10^3/ul (1.0-4.8); ABS Monocytes 0.5 10^3/ul (0-0.8); ABS Neutrophils 2.8 10^3/ul (1.5-7.7); Eosinophil % 6.4 %; Hematocrit 34 % (35-47); Hemoglobin 11.9 g/dL (12.0-16.0); Lymphocyte % 29.1 %; Mean Corpuscular HGB Conc 35 g/dL (31-36); Mean Corpuscular Hemoglobin 35 pg (27-31); Mean Corpuscular Volume 101 fL (80-97); Mean Platelet Volume 7.2 fL (7.4-10.4); Platelet Count 345 10^3/uL (150-450); Red Blood Count 3.39 10^6 /uL (3.70-4.87); Red Cell Distribution Width 14 % (10-15); White Blood Count 5.2 10^3/uL (3.5-10.8)
[2021-09-12] MEDS ORDERED: oxyCODONE/Acetamin 5/325 mg TAB PO ONE (13:11)
[2021-09-12 13:53] LABS: Calcium 8.9 mg/dL (8.6-10.3); eGFR CKD-EPI 111.6 (>60)
[2021-09-12] MEDS ORDERED: Lorazepam PYXIS KEY PRN ×2 (18:34→18:49)
[2021-09-12] MEDS ORDERED: LORazepam 2 mg VIAL 1 ml IV PUSH ONE ×2 (18:34→18:49)
[2021-09-12] MEDS ORDERED: Amphetamine MIXED SALT 10mgTAB PO PRN (19:01)
[2021-09-12 19:35] LABS: C Reactive Protein 2.15 mg/L (<8.01)
[2021-09-12] MEDS: Enoxaparin 40 MG/0.4 ML SYR SUBCUT SCH (20:08)
[2021-09-12 23:26] LABS: TSH Ultra Thyroid Stim Horm 0.92 mcIU/mL (0.34-5.60)
[2021-09-13 00:38] LABS: Erythrocyte Sed Rate 20 mm/Hr (0-19)
[2021-09-13 05:26] LABS: ABS Lymphocytes 0.5 10^3/ul (1.0-4.8); ABS Neutrophils 5.6 10^3/ul (1.5-7.7); Hematocrit 36 % (35-47); Hemoglobin 12.6 g/dL (12.0-16.0); Lymphocyte % 7.4 %; Mean Corpuscular HGB Conc 35 g/dL (31-36); Mean Corpuscular Hemoglobin 35 pg (27-31); Mean Corpuscular Volume 101 fL (80-97); Mean Platelet Volume 7.1 fL (7.4-10.4); Platelet Count 364 10^3/uL (150-450); Red Blood Count 3.56 10^6 /uL (3.70-4.87); Red Cell Distribution Width 14 % (10-15); White Blood Count 6.1 10^3/uL (3.5-10.8)
[2021-09-13] MEDS: Amphetamine/Dextroam ER 10(NF) 10 mg CAP.ER PO SCH ×2 (05:29→13:07)
[2021-09-13 05:55] LABS: Magnesium 1.9 mg/dL (1.9-2.7)
[2021-09-13] MEDS ORDERED: Glatiramer(NF) 20 MG/ML 1 ML SYRINGE SUBCUT SCH (09:00)
[2021-09-13] MEDS ORDERED: Lorazepam PYXIS KEY PRN (09:09)
[2021-09-13] MEDS ORDERED: LORazepam 2 mg VIAL 1 ml IV PUSH ONE (09:10)
[2021-09-13] MEDS: Lidocaine PATCH 5% PATCH TRANSDERM SCH (09:40)
[2021-09-13] MEDS: Polyethylene Glycol 3350 17 GM PACKET PO PRN (13:07)
[2021-09-13] MEDS: Senna TAB 8.6 mg TAB PO PRN (13:07)
[2021-09-13] MEDS ORDERED: methylPREDNISolone SOD SUCC 1000 MG ML VIAL IVPB SCH (15:00)
[2021-09-13] MEDS ORDERED: NS 0.9% 1000 ml BAG 500 ML IV ONE ×2 (15:40→17:09)
[2021-09-13] MEDS: methylPREDNISolone SOD SUCC 1,000 MG in NS 0.9% 250 ml 250 ML IVPB SCH (16:57)
[2021-09-13] MEDS: Enoxaparin 40 MG/0.4 ML SYR SUBCUT SCH (17:50)
[2021-09-13] MEDS: HYDROcodone/ACETAMIN 5/325 mg TAB PO PRN (20:20)
[2021-09-14] MEDS: Amphetamine/Dextroam ER 10(NF) 10 mg CAP.ER PO SCH ×2 (05:34→13:00)
[2021-09-14] MEDS: HYDROcodone/ACETAMIN 5/325 mg TAB PO PRN ×2 (05:47→21:08)
[2021-09-14] MEDS: Senna TAB 8.6 mg TAB PO PRN (07:52)
[2021-09-14] MEDS: Polyethylene Glycol 3350 17 GM PACKET PO PRN (07:52)
[2021-09-14] MEDS: Lidocaine PATCH 5% PATCH TRANSDERM SCH (07:53)
[2021-09-14] MEDS: methylPREDNISolone SOD SUCC 1,000 MG in NS 0.9% 250 ml 250 ML IVPB SCH (15:56)
[2021-09-14] MEDS: Enoxaparin 40 MG/0.4 ML SYR SUBCUT SCH (17:00)
[2021-09-15] MEDS: HYDROcodone/ACETAMIN 5/325 mg TAB PO PRN (05:42)
[2021-09-15] MEDS: Amphetamine/Dextroam ER 10(NF) 10 mg CAP.ER PO SCH ×2 (05:43→12:08)
[2021-09-15] MEDS: Senna TAB 8.6 mg TAB PO PRN (07:47)
[2021-09-15] MEDS: Polyethylene Glycol 3350 17 GM PACKET PO PRN ×2 (07:48→07:50)
[2021-09-15] MEDS: Lidocaine PATCH 5% PATCH TRANSDERM SCH (07:49)
[2021-09-15 12:08] VITALS: BP 141/86
[2021-09-15] MEDS: methylPREDNISolone SOD SUCC 1,000 MG in NS 0.9% 250 ml 250 ML IVPB SCH (14:21)
[2021-09-17 10:00] LABS: Complement C3 124 mg/dL (75 - 175)
[2021-09-17 13:22] LABS: Cyclic Citrullinated Pept IgG <15.6 U
[2021-09-17 16:38] LABS: HLA B27 Negative
[2021-09-17 17:25] LABS: Phospholipid Ab IgG < 9.4 GPL; Phospholipid Ab IgM, S < 9.4 MPL
[2021-09-17 19:52] LABS: JO-1 Antibody <0.2 U; RNP Antibody, IgG <0.2 U; SS-A/Ro Antibody <0.2 U; SS-B/La Antibody <0.2 U; Sm (Smith) IgG Antibody <0.2 U
[2021-09-19 10:27] LABS: Vitamin E 10.2 mg/L (5.5 - 17.0)
== END 2021-09-15 15:15 | disposition home or self-care (01) ==
LOC: ED 12:10 → EDHOLD 12:10 → MED 23:08
PROVIDERS: ADMIT Student in an Organized Health Care Education/Training Program; ATTEND Internal Medicine